=== PATIENT | male | born 1960 | race Caucasian/White ===

== ENCOUNTER 2021-04-27 11:03 | Outpatient (CLI) | payer OTHER, SELFPAY ==
[2021-04-27 11:24] LABS: Basophils Percent Auto 0.6 % (0.2-1.2); Eosinophils Percent Auto 0.6 % (0-4.4); Hematocrit 48.9 % (42.0-52.0); Hemoglobin 16.6 g/dL (14.0-18.0); Immature Granulocyte Absolute 0.01 K/mm3 (0.00-0.031); Immature Granulocyte Percent A 0.2 % (0-0.5); Lymphocytes Absolute Auto 1.85 K/mm3 (0.9-3.2); Lymphocytes Percent Auto 39.1 % (18.3-44.2); Mean Corpuscular HGB Conc 33.9 g/dl (32-36); Mean Corpuscular Hemoglobin 35.9 pg (26-34); Mean Corpuscular Volume 105.8 fl (80-100); Mean Platelet Volume 9.9 fl (7.4-10.4); Monocytes Absolute Auto 0.7 K/mm3 (0.1-0.6); Monocytes Percent Auto 14.4 % (2.6-8.5); Neutrophils Absolute Auto 2.1 K/mm3 (1.3-6.7); Neutrophils Percent Auto 45.1 % (45.5-73.1); Platelet Count Result 105 k/mm3 (150-375); Red Blood Count 4.62 M/mm3 (4.6-6.20); Red Cell Distribution Width 12.6 % (11.5-14.5); White Blood Count 4.7 K/mm3 (4.5-10.0)
[2021-04-27 16:02] LABS: Iron 218 ug/dL (49-181)
[2021-04-27 16:03] LABS: Alanine Aminotransferase 123 U/L (4-50); Albumin Level 4.7 g/dL (3.5-5.1); Alkaline Phosphatase 111 U/L (38-126); Anion Gap 10 mmol/L (8-16); Aspartate Amino Transferase 96 U/L (17-59); Bilirubin,Total 1.1 mg/dL (0.2-1.3); Blood Urea Nitrogen 14 mg/dL (9-20); Calcium 9.6 mg/dL (8.4-10.2); Carbon Dioxide 24 mmol/L (22-30); Chloride 106 mmol/L (98-107); Estimated Glomerular Filt Rate > 60; Glucose 121 mg/dL (65-110); Potassium 4.2 mmol/L (3.4-5.0); Sodium 140 mmol/L (137-145)
[2021-04-27 16:12] LABS: Percent Iron Saturation 64 % (20-50)
[2021-04-27 17:09] LABS: Folic Acid 8.6 ng/mL (2.76->20); Vitamin B12 > 1000.0 pg/mL (239-931)
== END 2021-04-27 11:04 | disposition home or self-care (01) ==
LOC: ANHLAB 11:06
PROVIDERS: PCP Family Medicine; Visit Provider Internal Medicine Hematology & Oncology
DX: D75.89 Other specified diseases of blood and blood-forming organs (principal)
CPT/HCPCS: 36415; 80053; 82607; 82728; 82746; 83540; 83550; 85025

== ENCOUNTER 2021-05-03 07:53 | Outpatient (CLI) | payer OTHER, SELFPAY ==
--- NOTE | ~2021-05-03 | US_ITS ---
EXAMINATION: US abdomen complete EXAM DATE: 05/03/2021 09:10 INDICATION: Other secondary thrombocytopenia. TECHNIQUE: Multiple grayscale and Doppler images of the complete abdomen were obtained (by a technolo gist who performed the scan) and subsequently reviewed. There is no prior study for comparison. FINDINGS: The abdominal aorta is normal in caliber. Visualized portion IVC is patent. Pancreas poorly visua lized from overlying bowel gas. The liver has normal echogenicity and contour. There are no focal liver lesions identified. There is no evidence of intrahepatic biliary duct dilation. Portal venous flow was seen in the hepatopedal , normal direction and has normal Doppler waveform. Common bile duct measures 4 mm, which is normal. The gallbladder wall is normal in thickness, with ex pected amount of distention. No sonographic evidence of pericholecystic fluid. There is no cholelit hiases. Technologist performing exam reports patient did not demonstrate sonographic Narvaez's sign. Please note that this sign is less reliable in patients who have received pain medication. Right kidney: There is normal contour and echogenicity. It measures 11.1 x 5.4 x 6.6 centimeters. There are no focal renal lesions identified. There is no hydronephrosis. Left kidney: There is normal contour and echogenicity. It measures 12.3 x 6.4 x 5.4 centimeters. T here are no focal renal lesions identified. There is no hydronephrosis. The spleen measures 10.5 by 4.0 x 5.4 centimeters and is morphologically normal. IMPRESSION: 1. Unremarkable complete abdominal ultrasound exam. 2. Normal spleen size. Reviewed, dictated and finalized at location A. HING PRESSER
== END 2021-05-03 07:54 | disposition home or self-care (01) ==
PROVIDERS: PCP Family Medicine; Visit Provider Internal Medicine Hematology & Oncology
DX: D69.59 Other secondary thrombocytopenia (principal)
CPT/HCPCS: 76700

== ENCOUNTER 2022-05-10 11:03 | Emergency (ER) | payer OTHER, SELFPAY ==
--- NOTE | ~2022-05-10 | US_ITS ---
Limited Abdominal Sonogram: Real-time sonographic imaging of the right upper quadrant was performed. Clinical History: Cholecystitis Findings: The liver appears normal with no evidence of mass lesion or bile duct dilatation. Main por joe vein demonstrates normal direction of flow. The gallbladder is well distended, and contains proba ble minimal gallbladder sludge. Probable mild gallbladder wall thickening up to 5 mm. The common bile duct measures 4 mm. The pancreas and aorta and IVC are obscured by bowel gas shadowing. Impression: Probable minimal gallbladder wall thickening and minimal sludge, but negative sonographic Narvaez's si gn. Findings are somewhat equivocal. If acute cholecystitis is of clinical concern, then HIDA scan sh ould be strongly considered to further evaluate for cystic duct patency. Reviewed, dictated and finalized at location . TENANCE AND UTILITIES SUPERVISOR Impression: Probable minimal gallbladder wall thickening and minimal sludge, but negative s onographic Narvaez's sign. Findings are somewhat equivocal. If acute cholecystit is is of clinical concern, then HIDA scan should be strongly considered to furt her evaluate for cystic duct patency.
--- NOTE | ~2022-05-10 | CT_ITS ---
CT Abdomen and Pelvis with contrast. History: Abdominal pain. Spiral CT of the abdomen and pelvis was performed after the administration of intravenous contrast. 1 00 cc of Omnipaque 350 was administered intravenously without complication. Dose reduction technique was used on this scan by utilizing automated exposure control and iterative reconstruction technique. The dose-length product (DLP) was 595.37 mGy-cm. COMPARISON: 05/24/2011 Findings: Scans through the lung bases demonstrate mild atelectatic change. There is probable mild infiltration of pericholecystic fat with mild distention of the gallbladder. T here is minimal heterogeneity of hepatic parenchyma with relative mild decreased density overall. The spleen, pancreas, adrenals and kidneys are within normal limits. No evidence of aortic aneurysm. N o lymphadenopathy is seen. There is no evidence of bowel obstruction. There is no evidence to suggest acute appendicitis or dive rticulitis. Images through the pelvis were performed. Urinary bladder unremarkable. Prostate gland and seminal ve sicles are unremarkable. No ascites is seen. Chronic bilateral L5 pars interarticularis defects are p resent. Impression: Findings suggestive of acute cholecystitis. Consider ultrasound and/or HIDA scan for further evaluati on as indicated. Mild heterogeneity and decreased density of the liver, most likely representing hepatic steatosis. Chronic bilateral L5 pars interarticularis defects. Reviewed, dictated and finalized at location M. EL DEDENTING MACHINE OPERATOR Impression: Findings suggestive of acute cholecystitis. Consider ultrasound and/or HIDA sca n for further evaluation as indicated. Mild heterogeneity and decreased density of the liver, most likely representing hepatic steatosis. Chronic bilateral L5 pars interarticularis defects.
[2022-05-10 11:14] VITALS: BP 172/99; PULSE 87; RESP 16; TEMP 37.2; O2SAT 99
[2022-05-10 11:21] VITALS: BP 184/89; PULSE 78; RESP 18; O2SAT 100
--- NOTE | 2022-05-10 11:37 | ED.ABDPAIN ---
HPI - Abdominal Pain General Chief Complaint: Abdominal Pain Stated Complaint: Sent from urgent care Time Seen by Provider: 05/10/22 11:24 History of Present Illness HPI narrative: 62-year-old male here for evaluation of diffuse abdominal pain and constipation for the past 2 days. Patient states that his last solid bowel movement was 3 days ago, since then he has been passing liquid stool and passing gas. States that his pain is all over , worse in the upper abdomen. Attempted Dulcolax without relief. Last p.o. intake was a grilled cheese about 24 hours ago, has had little appetite since then. No nausea, vomiting, fevers, chills, blood in his stool. He has had no abdominal surgeries and has no malignancy history. Related Data Allergies Allergy/AdvReac Type Severity Reaction Status Date / Time Penicillins Allergy Unknown Unknown Verified 05/10/22 12:22 Review of Systems Review of Systems: Gen.: Denies fevers or chills Eyes: Denies eye pain or visual change ENT: Denies congestion Respiratory: Denies shortness of breath or cough CV: Denies chest pain or palpitations GI: Reports abdominal pain and constipation : denies burning, urgency, frequency or hematuria Musculoskeletal: Denies back pain or muscle pain Neuro: Denies numbness, tingling, weakness or focal weakness Skin: Denies rash Except as documented, all other systems reviewed and negative [facility] Past Medical History Medical History BMI 25.0-25.9,adult Family History Family History Father Hypertension Mother Hypertension Sibling Hypertension Grandparent Family history of coronary artery disease Social History Social History Smoking status: Never smoker Alcohol intake: current Substance use: never Substance use type: does not use Living arrangements: with family Occupation/Education: retired Gender identity (if verbalized by the patient): Male Sexual Orientation (if Verbalized by the Patient): Straight or Heterosexual Spiritual care concerns: No Agree to blood products: Yes Exam Narrative: APPEARANCE: Well appearing, no pain in distress, well-nourished. Head: Normocephalic and atraumatic. EYES: PERRLA/EOMI, conjunctivae clear NOSE: No nasal drainage EARS: External ear normal in appearance THROAT: Oropharynx is clear. Mucous membranes are moist. NECK: Supple. No adenopathy, no masses. RESPIRATORY: Airway patent, respirations nonlabored. Clear to auscultation bilaterally, no rales, rhonchi, wheezing. CARDIOVASCULAR: Regular rate and rhythm without murmurs, rubs, or gallops. ABDOMINAL: Abdomen is firm and distended, tender to palpation in the epigastric region. No rebound tenderness or guarding. Normoactive bowel sounds. MUSCULOSKELETAL: Extremities are warm and well-perfused. Moves all extremities well. No edema. NEURO: Normal speech. No focal neurologic deficits. SKIN: Skin is warm and dry. No rashes. PSYCHIATRIC: Normal affect/mood. Course Vital Signs Vital signs: Vital Signs Temperature 98.9 F 05/10/22 11:14 Pulse Rate 87 05/10/22 11:14 Respiratory Rate 16 05/10/22 11:14 Blood Pressure 172/99 H 05/10/22 11:14 Pulse Oximetry 99 05/10/22 11:14 Oxygen Delivery Room Air 05/10/22 11:14 Temperature 98.9 F 05/10/22 11:14 Pulse Rate 78 05/10/22 11:21 Respiratory Rate 18 05/10/22 11:21 Blood Pressure 184/89 H 05/10/22 11:21 Pulse Oximetry 100 05/10/22 11:21 Oxygen Delivery Room Air 05/10/22 11:14 MDM - Abdominal Pain MDM Narrative Medical decision making narrative: 62-year-old male here for evaluation of upper abdominal pain and constipation over the past several days. Patient has elevated blood pressure 172/99, remainder vital signs are normal. He is tender to palpation in the epigastric region, his abdo
[2022-05-10 11:46] LABS: Basophils Percent Auto 0.2 % (0.2-1.2); Hematocrit 46.4 % (42.0-52.0); Hemoglobin 16.5 g/dL (14.0-18.0); Immature Granulocyte Percent A 0.6 % (0-0.5); Lymphocytes Absolute Auto 1.73 K/mm3 (0.9-3.2); Mean Corpuscular HGB Conc 35.6 g/dl (32-36); Mean Corpuscular Hemoglobin 35.3 pg (26-34); Mean Corpuscular Volume 99.1 fl (80-100); Mean Platelet Volume 9.6 fl (7.4-10.4); Monocytes Absolute Auto 2.3 K/mm3 (0.1-0.6); Monocytes Percent Auto 13.2 % (2.6-8.5); Neutrophils Absolute Auto 13.1 K/mm3 (1.3-6.7); Platelet Count Result 119 k/mm3 (150-375); Red Blood Count 4.68 M/mm3 (4.6-6.20); Red Cell Distribution Width 13.5 % (11.5-14.5); White Blood Count 17.3 K/mm3 (4.5-10.0)
[2022-05-10 11:47] LABS: Appearance Urine Clear (Clear); Bilirubin Urine Negative (Negative); Blood Urine Trace-intact (Negative); Color Urine Yellow (Yellow); Glucose Urine UA Negative (Negative); Ketones Urine 1+ mg/dL (Negative); Leukocyte Esterase Ur Negative LEU/UL (Negative); Nitrate Urine Negative (Negative); Protein Urine 2+ mg/dL (Negative); Specific Grav Ur 1.015 (1.001-1.035); Urobilinogen Urine 0.2 mg/dL (<2.0)
[2022-05-10 11:54] LABS: Alanine Aminotransferase 58 U/L (6-50); Albumin Level 4.7 g/dL (3.5-5.1); Alkaline Phosphatase 94 U/L (38-126); Anion Gap 6 mmol/L (8-16); Aspartate Amino Transferase 44 U/L (17-59); Bilirubin,Total 2.8 mg/dL (0.2-1.3); Blood Urea Nitrogen 9 mg/dL (9-20); Calcium 9.2 mg/dL (8.4-10.2); Carbon Dioxide 27 mmol/L (22-30); Chloride 97 mmol/L (98-107); Estimated CRCL calculation 81 ml/min; Estimated Glomerular Filt Rate > 60; Glucose 148 mg/dL (65-110); Lipase 37 U/L (23-300); Mucus Urine Rare /lpf; Potassium 4.5 mmol/L (3.4-5.0); RBC Urine 0-2 /hpf (0-2); Sodium 130 mmol/L (137-145); WBC Urine 0-3 /hpf
[2022-05-10 11:58] LABS: Add Urine Microscopic? YES
[2022-05-10 12:17] LABS: Magnesium 1.8 mg/dL (1.6-2.3)
[2022-05-10] MEDS: SODIUM CHLORIDE 0.9% IV 1,000 ML 999 ML IV CONT (12:18)
[2022-05-10] MEDS: ONDANSETRON INJ 4 MG/2 ML VIAL IV PUSH (12:20)
[2022-05-10] MEDS: MORPHINE SULFATE (*CRX) 4 MG/ML INJ IV PUSH (13:12)
== END 2022-05-10 14:00 | disposition home or self-care (01) ==
PROVIDERS: Emergency Provider Physician Assistant; PCP Family Medicine
DX: K81.0 Acute cholecystitis (principal)
CPT/HCPCS: 36415; 74177; 76705; 80053; 81001; 83605; 83690; 83735; 85025; 96361; 96374; 96375; 99284; J2270; J2405; J7030; Q9967

== ENCOUNTER 2022-05-15 10:40 | Inpatient (IN) | payer OTHER, SELFPAY ==
--- NOTE | ~2022-05-15 | CT_ITS ---
EXAMINATION: CT abdomen pelvis w con DATE: 05/15/2022 11:25 INDICATION: Acute cholecystitis. TECHNIQUE: Computed tomography (CT) of the abdomen and pelvis was performed with 100 mL Omnipaque 350 intravenous contrast. Automated exposure control and iterative reconstruction technique were employe d. The dose-length product was 479.03 mGy-cm. COMPARISON: CT abdomen and pelvis 05/10/2022, ultrasound 05/10/2022 FINDINGS: The visualized portions of the lung bases demonstrate mild atelectasis. No pleural effusion . The heart size is normal. There are coronary artery calcifications. No pericardial effusion. There is a small sliding hiatal hernia. There is a 6 mm cyst in the liver. The gallbladder is distended wit h wall thickening and surrounding fat stranding. The spleen, pancreas, adrenal glands, and right kidn ey are normal. There is a 3 mm cyst in left kidney. There are no dilated loops of bowel. The appendix is normal. There are no pathologically enlarged lymph nodes. There is no free intraperitoneal fluid. There are chronic bilateral L5 pars defects. There is moderate thoracic and lumbar spondylosis. IMPRESSION: 1. Acute cholecystitis. Reviewed, dictated and finalized at location A. TICS ENGINEER IMPRESSION: 1. Acute cholecystitis.
--- NOTE | 2022-05-15 11:04 | ADMGEN ---
This patient, Alf Alston, was admitted to 3 [facility] Surg Room 320-01. Patient/family oriented to hospital policies and general routines including ID bracelet, bed and alarms, visiting hours, pain management, procedures, bathroom and other care routines, personal items, smoking policy, room service/diet, and visiting hours. Information on how to activate the Rapid Response Team has been discussed. Patient/Family are encouraged to report perceived risks to care and to ask questions if they do not understand what they are told or what they should do.
--- NOTE | 2022-05-15 11:17 | PM.IMHP ---
H&P: HPI History of Present Illness Date/Time: 05/15/22 11:17 Chief Complaint: Acute cholecystitis Narrative: This is a 62-year-old man with a history of hypertension and hyperlipidemia, who is being directly admitted from our office today for acute cholecystitis. He was recently in [facility] ED on 05/10/2022 with a 2-day history of severe epigastric and RUQ abdominal pain, back pain, and bloating.? CT scan performed was suggestive of acute cholecystitis.?Ultrasound showed probable minimal gallbladder wall thickening and minimal sludge, but negative sonographic Narvaez's sign. Labs showed WBC to be 17.3, total bili was 2.8, and ALT was 58.?He was discharged with a course of Jacob 5/325mg po Q 8 hours and Miralax, and instructed to follow-up in our office for outpatient evaluation.? No antibiotics were given.?He was then seen by Dr. Nunez this morning in the office. He has continued to have persistent RUQ abdominal pain since discharge, for a total of 6 days. His pain is aggravated by deep breathing. He has taken Miralax and has been having small, watery stools but without improvement in his pain. No nausea, vomiting, or fevers. Denies dark-colored urine, munir-colored stools, or scleral icterus. No previous abdominal surgeries. Review of Systems Review of Systems: All systems reviewed & are unremarkable except as noted in HPI and below PMFSH Past Medical History Medical History Benign hypertension Hyperlipidemia Surgical History Surgical History History of knee surgery History of rotator cuff surgery Family History Family History Father Hypertension Cancer Mother Hypertension Sibling Hypertension Grandparent Family history of coronary artery disease Social History Social History Smoking packs per day: 0.5 Smoking cigarettes per day: 10.0 Years smoked: 15 Smoking pack-years: 7.50 Smoking status: Former smoker Tobacco type: cigarettes Second hand tobacco smoke exposure: Yes Smoking end date: 04/21/94 Alcohol intake: current Drinks per week: 8 Substance use: never Substance use type: does not use Lack of Transportation: No Lack of Food: Never True Current Housing: I Have Housing Concerned About Future Housing: No Difficulty Paying Gas/Electric Bills: No Difficulty Paying for Meds: No Currently Unemployed: No Education: Don't Know Difficulty w/ Childcare or Family Care: No Living arrangements: with family Occupation/Education: retired Additional occupation/education comments: [employer] Gender identity (if verbalized by the patient): Male Sexual Orientation (if Verbalized by the Patient): Straight or Heterosexual Spiritual care concerns: No Agree to blood products: Yes Meds Home Medications and Allergies Home Medications Medication Instructions Recorded Confirmed Type omeprazole 20 mg capsule,delayed 20 mg PO DAILY #90 caps 06/28/21 05/15/22 Rx release ezetimibe 10 mg tablet (Zetia) 10 mg PO DAILY #90 tabs 10/22/21 05/15/22 Rx lisinopril 40 mg tablet 40 mg PO DAILY #90 tabs 01/24/22 05/15/22 Rx hydrocodone 5 mg-acetaminophen 325 1 tablet PO Q6H PRN pain #20 tabs 05/14/22 05/15/22 Rx mg tablet ketoconazole 2 % shampoo 1 applic topical 2XW PRN itching 05/15/22 05/15/22 History Allergies Allergy/AdvReac Type Severity Reaction Status Date / Time Penicillins Allergy Unknown Unknown Verified 05/15/22 09:51 Exam Const: General: comfortable, no acute distress and awake Nutritional Appearance: average body habitus Orientation/consciousness: patient oriented x3 HENMT: Head: normocephalic and atraumatic Ears: hearing grossly normal bilaterally Mouth: Yes moist mucous membranes Eyes: General: appearanc
[2022-05-15 11:18] VITALS: BMI 26.3
[2022-05-15 11:31] LABS: Basophils Absolute Auto 0.1 K/mm3 (0.0-0.1); Basophils Percent Auto 0.7 % (0.2-1.2); Eosinophils Percent Auto 0.2 % (0-4.4); Hematocrit 41.2 % (42.0-52.0); Immature Granulocyte Absolute 0.04 K/mm3 (0.00-0.031); Immature Granulocyte Percent A 0.5 % (0-0.5); Lymphocytes Absolute Auto 1.36 K/mm3 (0.9-3.2); Lymphocytes Percent Auto 16.8 % (18.3-44.2); Mean Corpuscular Hemoglobin 34.5 pg (26-34); Mean Corpuscular Volume 101.5 fl (80-100); Monocytes Absolute Auto 0.8 K/mm3 (0.1-0.6); Monocytes Percent Auto 9.8 % (2.6-8.5); Neutrophils Absolute Auto 5.8 K/mm3 (1.3-6.7); Platelet Count Result 125 k/mm3 (150-375); Red Blood Count 4.06 M/mm3 (4.6-6.20); Red Cell Distribution Width 13.4 % (11.5-14.5); White Blood Count 8.1 K/mm3 (4.5-10.0)
[2022-05-15 11:34] LABS: INR 1.2; Prothrombin Time 14.8 Seconds (11.1-14.7)
[2022-05-15 11:45] LABS: Alanine Aminotransferase 111 U/L (6-50); Albumin Level 4.1 g/dL (3.5-5.1); Alkaline Phosphatase 215 U/L (38-126); Anion Gap 12 mmol/L (8-16); Aspartate Amino Transferase 137 U/L (17-59); Bilirubin,Total 1.9 mg/dL (0.2-1.3); Blood Urea Nitrogen 48 mg/dL (9-20); Calcium 8.7 mg/dL (8.4-10.2); Carbon Dioxide 22 mmol/L (22-30); Chloride 95 mmol/L (98-107); Estimated CRCL calculation 32 ml/min; Estimated Glomerular Filt Rate 32; Glucose 127 mg/dL (65-110); Potassium 3.4 mmol/L (3.4-5.0); Sodium 129 mmol/L (137-145)
[2022-05-15 11:46] LABS: Lipase 3472 U/L (23-300)
[2022-05-15] MEDS: SODIUM CHLORIDE 0.9% IV 1,000 ML 100 ML IV CONT (12:00)
[2022-05-15] MEDS: LACTATED RINGERS 1,000 ML 245 ML IV CONT (12:48)
[2022-05-15] MEDS: PANTOPRAZOLE SODIUM IV 40 MG VIAL IV PUSH (12:50)
[2022-05-15 14:00] VITALS: BP 113/68; PULSE 71; RESP 16; TEMP 36.4; O2SAT 96
[2022-05-15] MEDS: DEXTROSE 5%/0.9% SOD CHL 1,000 ML 130 ML IV CONT (17:42)
[2022-05-15] MEDS: MORPHINE SULFATE (*CRX) 2 MG/ML INJ IV PUSH (18:19)
[2022-05-15] MEDS: EZETIMIBE 10 MG TABLET PO (20:31)
[2022-05-15 22:07] VITALS: BP 117/74; PULSE 71; RESP 18; TEMP 36.9; O2SAT 100
[2022-05-16] MEDS: SODIUM CHLORIDE 0.9% IV 1,000 ML 100 ML IV CONT ×3 (03:27→20:49)
[2022-05-16 06:00] VITALS: BP 129/84; PULSE 60; RESP 16; TEMP 36.6; O2SAT 97
[2022-05-16 06:45] LABS: Basophils Percent Auto 0.3 % (0.2-1.2); Eosinophils Percent Auto 0.2 % (0-4.4); Hematocrit 35.2 % (42.0-52.0); Hemoglobin 12.3 g/dL (14.0-18.0); Immature Granulocyte Absolute 0.03 K/mm3 (0.00-0.031); Immature Granulocyte Percent A 0.5 % (0-0.5); Lymphocytes Absolute Auto 1.17 K/mm3 (0.9-3.2); Lymphocytes Percent Auto 17.9 % (18.3-44.2); Mean Corpuscular HGB Conc 34.9 g/dl (32-36); Mean Corpuscular Hemoglobin 34.2 pg (26-34); Mean Corpuscular Volume 97.8 fl (80-100); Monocytes Absolute Auto 0.6 K/mm3 (0.1-0.6); Monocytes Percent Auto 9.2 % (2.6-8.5); Neutrophils Absolute Auto 4.7 K/mm3 (1.3-6.7); Neutrophils Percent Auto 71.9 % (45.5-73.1); Platelet Count Result 119 k/mm3 (150-375); Red Cell Distribution Width 13.2 % (11.5-14.5); White Blood Count 6.6 K/mm3 (4.5-10.0)
[2022-05-16 06:48] LABS: Alanine Aminotransferase 82 U/L (6-50); Albumin Level 3.2 g/dL (3.5-5.1); Alkaline Phosphatase 158 U/L (38-126); Anion Gap 5 mmol/L (8-16); Aspartate Amino Transferase 88 U/L (17-59); Bilirubin,Total 1.3 mg/dL (0.2-1.3); Blood Urea Nitrogen 23 mg/dL (9-20); Carbon Dioxide 23 mmol/L (22-30); Chloride 101 mmol/L (98-107); Estimated CRCL calculation 66 ml/min; Estimated Glomerular Filt Rate > 60; Glucose 109 mg/dL (65-110); Lipase 1990 U/L (23-300); Potassium 3.4 mmol/L (3.4-5.0); Sodium 129 mmol/L (137-145)
[2022-05-16 07:40] LABS: Atypical Lymphocytes Present; Platelet Estimate Decreased (Adequate); Schistocytes None Seen (NORMAL)
[2022-05-16 07:56] VITALS: BP 144/81; PULSE 63; RESP 16; TEMP 36.6; O2SAT 99
--- NOTE | 2022-05-16 09:34 | PM.PNGS ---
Progress Note: A&P Assessment and Plan (1) Gallstone pancreatitis: Code(s): K85.10 - Biliary acute pancreatitis without necrosis or infection Status: Acute Assessment and Plan: Presented with gallstone pancreatitis. Lipase down to 1990 today. Abdominal pain is improving, which is likely related to the gallstone pancreatitis more than the cholecystitis. Will start a clear liquid diet. Continue IV fluids and analgesics as needed. Repeat labs tomorrow. (2) Acute cholecystitis: Code(s): K81.0 - Acute cholecystitis Status: Acute Assessment and Plan: Clinically improving with treatment of the pancreatitis. CT abd/pelvis yesterday suggested acute cholecystitis. WBC still normal and LFTs trending down. Continue IV antibiotics. Since he is improving, we will hold off on percutaneous cholecystostomy tube at this time. (3) RICHA (acute kidney injury): Code(s): N17.9 - Acute kidney failure, unspecified Status: Acute Assessment and Plan: Creatinine 2.1 yesterday and has improved with IV fluids, down to 1.0. continue to monitor. IV Zosyn was at the renal dose, will switch back to 3.375 gm dosing. (4) Transaminitis: Code(s): R74.01 - Elevation of levels of liver transaminase levels Status: Acute Assessment and Plan: Elevated LFTs with total bilirubin at 1.9 yesterday when admitted. LFTs trending down today with total bili down to 1.3. He likely passed a stone, but will continue to monitor trend. May need an MRCP if trending up. (5) Benign hypertension: Code(s): I10 - Essential (primary) hypertension Status: Chronic Assessment and Plan: BP stable this morning. IV metoprolol ordered as needed. (6) Hyperlipidemia: Qualifiers: Hyperlipidemia type: unspecified Qualified Code(s): E78.5 - Hyperlipidemia, unspecified Code(s): E78.5 - Hyperlipidemia, unspecified Status: Chronic Assessment and Plan: Home meds restarted Plan I have discussed the patient's case and plan of care with Dr. Nunez. Subjective Subjective Date/Time Seen: 05/16/22 09:34 Patient reports: feels better, pain is less, flatus, bowel movement (large BM) and afebrile Interval history: Patient feeling better this morning .He only received one dose of IV Morphine for pain around 6pm last night. No nausea and he feels his bloating has improved some. No acute issues overnight or other complaints at this time. Review of Systems Review of Systems: All systems reviewed & are unremarkable except as noted in HPI and below Exam Const: General: comfortable, no acute distress and awake Orientation/consciousness: patient oriented x3 GI: Inspection: other (mildly distended) GI Palp: Yes Soft to palpation, Yes Tenderness to palpation present (GI) (RUQ, epigastric), No Guarding due to palpation present (GI) and No Rebound tenderness present Auscultation: normal bowel sounds Neuro: General: moves all extremities Extrem: General: no edema Psych: Mental Status: mental status grossly normal Objective Data Vital Signs Vital Signs: Vital Signs - 24 hr 05/15/22 11:38 05/15/22 14:00 05/15/22 22:07 Temperature 97.6 F 98.4 F Pulse Rate 71 71 Respiratory Rate 16 18 Blood Pressure 113/68 117/74 Pulse Oximetry 96 100 Oxygen Delivery Room Air 05/15/22 20:31 05/16/22 06:00 05/16/22 07:56 Temperature 97.9 F 98 F Pulse Rate 60 63 Respiratory Rate 16 16 Blood Pressure 129/84 144/81 H Pulse Oximetry 97 99 Oxygen Delivery Room Air Intake/Output Intake/Output: Intake & Output 05/13/22 05/14/22 05/15/22 05/16/22 23:59 23:59 23:59 23:59 Intake Total 1100 120 Balance 1100 120 Meds/Results Medications: Active Medications Generic Name Dose Route Start Last Admin Trade Name Ashley PRN Reason Stop Dose Admin Ezetimibe 10 mg 05/15/22 21:00 05/15/22 20:31 Ezetimibe 10 Mg Tablet PO 10 mg HS SAÚL Administration S
[2022-05-16] MEDS: MORPHINE SULFATE (*CRX) 2 MG/ML INJ IV PUSH (09:37)
[2022-05-16] MEDS: PANTOPRAZOLE SODIUM IV 40 MG VIAL IV PUSH (09:53)
[2022-05-16] MEDS: POTASSIUM CHLORIDE INJ 40 MEQ in SODIUM CHLORIDE 0.9% IV 500 ML 130 MEQ IVPB (10:48)
[2022-05-16 16:00] VITALS: BP 161/82; PULSE 66; RESP 16; TEMP 37.3; O2SAT 100
[2022-05-16] MEDS: ACETAMINOPHEN 325 MG TABLET 650 MG PO (16:39)
[2022-05-16 19:00] VITALS: TEMP 36.3
[2022-05-16] MEDS: EZETIMIBE 10 MG TABLET PO (20:41)
[2022-05-16 22:00] VITALS: BP 158/78; PULSE 61; RESP 18; TEMP 35.9; O2SAT 97
[2022-05-17] MEDS: SODIUM CHLORIDE 0.9% IV 1,000 ML 100 ML IV CONT (05:12)
[2022-05-17 06:00] VITALS: BP 158/88; PULSE 75; RESP 16; TEMP 36.3; O2SAT 100
[2022-05-17 06:36] LABS: Hematocrit 37.8 % (42.0-52.0); Mean Corpuscular HGB Conc 34.4 g/dl (32-36); Mean Corpuscular Hemoglobin 34.9 pg (26-34); Mean Corpuscular Volume 101.6 fl (80-100); Mean Platelet Volume 9.6 fl (7.4-10.4); Platelet Count Result 132 k/mm3 (150-375); Red Blood Count 3.72 M/mm3 (4.6-6.20); Red Cell Distribution Width 13.4 % (11.5-14.5); White Blood Count 6.7 K/mm3 (4.5-10.0)
[2022-05-17 06:50] LABS: Alanine Aminotransferase 78 U/L (6-50); Albumin Level 3.1 g/dL (3.5-5.1); Alkaline Phosphatase 158 U/L (38-126); Anion Gap 6 mmol/L (8-16); Aspartate Amino Transferase 74 U/L (17-59); Bilirubin,Total 1.2 mg/dL (0.2-1.3); Blood Urea Nitrogen 12 mg/dL (9-20); Calcium 8.1 mg/dL (8.4-10.2); Carbon Dioxide 22 mmol/L (22-30); Chloride 106 mmol/L (98-107); Estimated CRCL calculation 73 ml/min; Estimated Glomerular Filt Rate > 60; Glucose 109 mg/dL (65-110); Lipase 981 U/L (23-300); Potassium 3.6 mmol/L (3.4-5.0); Sodium 134 mmol/L (137-145)
--- NOTE | 2022-05-17 08:27 | PM.PNGS ---
Progress Note: A&P Assessment and Plan (1) Acute cholecystitis: Code(s): K81.0 - Acute cholecystitis Status: Acute Assessment and Plan: Patient's right lower quadrant bowel pain is improving. White blood cell count is now normal. Liver enzymes are almost normalized. Total bilirubin is down to 1.2. He may have passed a gallstone or his acute pancreatitis may be due to biliary sludge. Has tolerated clear liquids and so will go ahead and advance him to a low-fat bland diet. Continue his IV antibiotics for now. Go ahead and restart all his home antihypertensive medications by mouth. Transitional using oral pain medications as needed. Hopefully home in the next 1 to 2 days. Would plan on interval laparoscopic cholecystectomy when the inflammation has subsided in 3 to 4 weeks. (2) Gallstone pancreatitis: Code(s): K85.10 - Biliary acute pancreatitis without necrosis or infection Status: Acute Assessment and Plan: Lipase is now down to 900. Clinically the epigastric pain and pancreatitis is improving. Continue supportive management. Subjective Subjective Date/Time Seen: 05/17/22 08:27 Patient reports: no new complaints, feels better, pain is less and tolerating liquids well Interval history: Patient feels better today. He has less abdominal pain and is not taking pain medicines overnight. he has been having bowel movements. He tolerated clear liquids yesterday. Review of Systems Review of Systems: The remainder of the review of systems to include constitutional, HEENT, cardiovascular, respiratory, GI, , integumentary, musculoskeletal, endocrine, immunologic, hematologic, psychiatric, and neurologic are all negative except for which is mentioned above in the HPI. Exam Const: General: comfortable and no acute distress Resp: Effort & Inspection: normal respiratory effort Cardio: Rate: regular rate Rhythm: regular rhythm GI: Other: Abdomen is soft with decreased abdominal distention. He still has some mild tenderness to deep palpation in the epigastric and right upper quadrant regions of the abdomen. No guarding or peritoneal signs are noted. Tenderness is definitely better. Psych: Mental Status: mental status grossly normal Affect: normal affect Objective Data Vital Signs Vital Signs: Vital Signs - 24 hr 05/16/22 16:00 05/16/22 19:00 05/16/22 22:00 Temperature 37.3 C 36.3 C L 35.9 C L Pulse Rate 66 61 Respiratory Rate 16 18 Blood Pressure 161/82 H 158/78 H Pulse Oximetry 100 97 Oxygen Delivery 05/16/22 20:49 05/17/22 06:00 Temperature 36.3 C L Pulse Rate 75 Respiratory Rate 16 Blood Pressure 158/88 H Pulse Oximetry 100 Oxygen Delivery Room Air Intake/Output Intake/Output: Intake & Output 05/14/22 05/15/22 05/16/22 05/17/22 23:59 23:59 23:59 23:59 Intake Total 1100 4510 1100 Output Total 900 Balance 1100 3610 1100 Meds/Results Medications: Active Medications Generic Name Dose Route Start Last Admin Trade Name Freq PRN Reason Stop Dose Admin Acetaminophen 650 mg 05/16/22 09:53 05/16/22 16:39 Acetaminophen 325 Mg Tablet PO 650 mg Q4H PRN Administration Headache Ezetimibe 10 mg 05/15/22 21:00 05/16/22 20:41 Ezetimibe 10 Mg Tablet PO 10 mg HS SAÚL Administration Piperacillin/Tazobactam/Dextrose 3.375 gm in 50 mls @ 100 mls/hr 05/16/22 12:00 05/17/22 05:12 Zosyn 3.375 Gm/D5w 50ml Pm IVPB 125 mls/hr Q6H SAÚL Administration Lisinopril 40 mg 05/17/22 09:00 Lisinopril 20 Mg Tablet PO QAM SAÚL Metoprolol Tartrate 5 mg 05/15/22 12:10 Metoprolol Tartrate Inj 5 Mg/5 Ml Vial IV PUSH Q4H PRN SBP > 170. Morphine Sulfate 2 mg 05/15/22 10:55 05/16/22 09:37 Morphine Sulfate (*Crx) 2 Mg/Ml Inj IV PUSH 2 mg Q2H PRN Administration Pain Rated 7-10 Ondansetron HCl 4 mg 05/15/22 10:55 Ondansetron Inj 4 Mg/2 Ml Vial IV PUSH Q6H PRN Naus
[2022-05-17] MEDS: oxyCODONE HCL (*CRX) 5 MG TAB IR PO ×3 (08:49→18:46)
[2022-05-17] MEDS: PANTOPRAZOLE 40 MG TABLET PO (09:47)
[2022-05-17] MEDS: lisinopriL 20 MG TABLET 40 MG PO (09:47)
[2022-05-17 16:00] VITALS: BP 161/89; PULSE 75; RESP 20; TEMP 36.3; O2SAT 100
[2022-05-17] MEDS: EZETIMIBE 10 MG TABLET PO (20:41)
[2022-05-17 22:00] VITALS: BP 168/78; PULSE 61; RESP 18; TEMP 36.6; O2SAT 100
[2022-05-17] MEDS: ACETAMINOPHEN 325 MG TABLET 650 MG PO (23:10)
[2022-05-18 06:00] VITALS: BP 164/80; PULSE 54; RESP 18; TEMP 36.4; O2SAT 100
[2022-05-18 07:50] LABS: Basophils Percent Auto 0.3 % (0.2-1.2); Eosinophils Percent Auto 0.4 % (0-4.4); Hematocrit 36.7 % (42.0-52.0); Hemoglobin 12.7 g/dL (14.0-18.0); Immature Granulocyte Absolute 0.04 K/mm3 (0.00-0.031); Immature Granulocyte Percent A 0.6 % (0-0.5); Lymphocytes Absolute Auto 1.44 K/mm3 (0.9-3.2); Lymphocytes Percent Auto 20.3 % (18.3-44.2); Mean Corpuscular HGB Conc 34.6 g/dl (32-36); Mean Corpuscular Hemoglobin 34.5 pg (26-34); Mean Corpuscular Volume 99.7 fl (80-100); Mean Platelet Volume 9.8 fl (7.4-10.4); Monocytes Absolute Auto 0.7 K/mm3 (0.1-0.6); Monocytes Percent Auto 9.6 % (2.6-8.5); Neutrophils Absolute Auto 4.9 K/mm3 (1.3-6.7); Neutrophils Percent Auto 68.8 % (45.5-73.1); Platelet Count Result 142 k/mm3 (150-375); Red Blood Count 3.68 M/mm3 (4.6-6.20); Red Cell Distribution Width 13.2 % (11.5-14.5); White Blood Count 7.1 K/mm3 (4.5-10.0)
[2022-05-18 08:17] LABS: Alanine Aminotransferase 68 U/L (6-50); Albumin Level 3.3 g/dL (3.5-5.1); Alkaline Phosphatase 145 U/L (38-126); Anion Gap 5 mmol/L (8-16); Aspartate Amino Transferase 58 U/L (17-59); Bilirubin,Total 1.2 mg/dL (0.2-1.3); Blood Urea Nitrogen 10 mg/dL (9-20); Calcium 8.4 mg/dL (8.4-10.2); Carbon Dioxide 24 mmol/L (22-30); Chloride 100 mmol/L (98-107); Estimated CRCL calculation 73 ml/min; Estimated Glomerular Filt Rate > 60; Glucose 163 mg/dL (65-110); Lipase 603 U/L (23-300); Potassium 3.7 mmol/L (3.4-5.0); Sodium 129 mmol/L (137-145)
[2022-05-18] MEDS: PANTOPRAZOLE 40 MG TABLET PO (08:58)
[2022-05-18] MEDS: lisinopriL 20 MG TABLET 40 MG PO (08:58)
[2022-05-18] MEDS: ACETAMINOPHEN 325 MG TABLET 650 MG PO (08:59)
--- NOTE | 2022-05-18 12:50 | PM.DS ---
DS: Admitting Diagnosis Discharge Date 05/18/22 Admitting Diagnosis acute biliary pancreatitis, acute cholecystitis DS: Discharge Diagnosis Discharge Diagnosis (1) Acute cholecystitis: Code(s): K81.0 - Acute cholecystitis Status: Acute Assessment and Plan: exam improved, continue low-fat diet, home with p.o. antibiotics, follow-up in 2 weeks to schedule interval cholecystectomy (2) Gallstone pancreatitis: Code(s): K85.10 - Biliary acute pancreatitis without necrosis or infection Status: Acute Assessment and Plan: exams and laboratory improved, continue low-fat diet, will need interval cholecystectomy DS: Summary Hospital Course Reason for hospitalization: acute cholecystitis, acute biliary pancreatitis Hospital Course: The patient is a 62-year-old male pre to the hospital with severe epigastric abdominal pain. Workup, including imaging and laboratory, consistent with acute cholecystitis and acute biliary pancreatitis. Given these findings, the patient was admitted to the surgical service. The patient was started on IV antibiotics and bowel rest. Following day the lipase level was much improved and the patient was started on a low-fat diet. On hospital day 2. , the patient was tolerating low-fat diet and abdominal pain is much improved. His laboratory have also improved including a lipase 600. The patient will be discharged home at this time with continued low fat diet and p.o. antibiotics. He will follow up with Dr. Nunez in 2 weeks to schedule interval cholecystectomy. Status at Discharge Functional status at discharge: independent ambulation Overall status at discharge: patient is progressing back to baseline Time Spent with Patient Time attestation: Total time spent providing and/or coordinating discharge services: Time spent: Less than 30 minutes Exam Const: General: cooperative, comfortable and no acute distress Resp: Auscultation: clear to auscultation bilaterally Cardio: Rate: regular rate Rhythm: regular rhythm GI: Inspection: normal to inspection and distended GI Palp: Yes abdominal tenderness, Yes Soft to palpation, Yes Tenderness to palpation present (GI), No Guarding due to palpation present (GI) and No Rigid due to palpation DS: Data Data Completed and Pending Labs on day of discharge: Labs from last 24 hours 05/18/22 05/18/22 06:55 06:55 WBC 7.1 RBC 3.68 L Hgb 12.7 L Hct 36.7 L MCV 99.7 MCH 34.5 H MCHC 34.6 RDW 13.2 Plt Count 142 L MPV 9.8 Immature Gran % (Auto) 0.6 H Neut % (Auto) 68.8 Lymph % (Auto) 20.3 [place] % (Auto) 9.6 H Eos % (Auto) 0.4 Baso % (Auto) 0.3 Lymph # (Auto) 1.44 [place] # (Auto) 0.7 H Eos # (Auto) 0.0 Baso # (Auto) 0.0 Abs Immat Gran (auto) 0.04 H Absolute Neuts (auto) 4.9 Absolute Nucleated RBC 0.0 Nucleated RBC % 0.0 Sodium 129 L Potassium 3.7 Chloride 100 Carbon Dioxide 24 Anion Gap 5 L BUN 10 Creatinine 0.90 Estim Creat Clear Calc 73 Estimated GFR > 60 Glucose 163 H Calcium 8.4 Total Bilirubin 1.2 AST 58 ALT 68 H Alkaline Phosphatase 145 H Total Protein 7.0 Albumin 3.3 L Lipase 603 H Preliminary micro results at discharge 05/15/22 11:14 Blood Culture - Preliminary Blood 05/15/22 11:15 Blood Culture - Preliminary Blood Discharge Plan Discharge Attending physician on discharge: Tk Nunez Discharging Clinician: Josefina Almaguer Anticipated Discharge Date/Time: 05/18/22 12:48 Patient Disposition: Home, Self-Care Activity: may shower and unlimited Diet: low fat Patient Instructions: Antibiotic Form, Cholecystitis (GEN), Gallstones (DC) Stand Alone Forms: General Discharge Information Follow-up/Referrals: Josefina Almaguer MD [Physician] - Tk Nunez MD [Physician] - 2 Weeks Discharge Medications: New ciprofloxacin HCl [Cipro] 500 mg tablet 500 mg PO Q12H Qty: 14 0RF
== END 2022-05-18 14:04 | disposition home or self-care (01) | DRG 439 ==
PROVIDERS: Nurse Practitioner Family; Admitting Provider Surgery; PCP Family Medicine; Visit Provider Surgery
DX: K85.10 Biliary acute pancreatitis without necrosis or infection (principal); K81.0 Acute cholecystitis; N17.9 Acute kidney failure, unspecified; I10 Essential (primary) hypertension; E78.5 Hyperlipidemia, unspecified; Z87.891 Personal history of nicotine dependence
CPT/HCPCS: 36415; 74177; 80053; 83690; 85025; 85027; 85610; 85730; 87040; 96365; 96366; 96374; 96375; 96376; A9270; C9113; G0378; G0379; J2270; J2543; J3480; J7030; J7040; J7042; J7120; Q9967

== ENCOUNTER 2022-06-05 08:57 | Outpatient (CLI) | payer OTHER, SELFPAY ==
--- NOTE | 2022-06-05 09:07 | ECG_ITS ---
Measurements Intervals [place] Rate: 72 P: 44 AR: 205 QRS: 30 QRSD: 85 T: 24 QT: 351 QTc: 385 Interpretive Statements SINUS RHYTHM NO PREVIOUS ECG AVAILABLE FOR COMPARISON Electronically Signed On 06-05-2022 15:28:05 [employer] by Laureano Nails M.D.
[2022-06-05 09:29] LABS: Sodium 135 mmol/L (137-145)
[2022-06-05 09:37] LABS: Alanine Aminotransferase 45 U/L (6-50); Albumin Level 4.3 g/dL (3.5-5.1); Alkaline Phosphatase 118 U/L (38-126); Amylase 107 U/L (30-110); Aspartate Amino Transferase 41 U/L (17-59); Bilirubin,Total 0.8 mg/dL (0.2-1.3); Lipase 298 U/L (23-300)
== END 2022-06-05 08:58 | disposition home or self-care (01) ==
LOC: ANHSURGERY 08:59
PROVIDERS: Anesthesiology; PCP Family Medicine; Visit Provider Surgery
DX: K81.1 Chronic cholecystitis (principal); E78.5 Hyperlipidemia, unspecified; I10 Essential (primary) hypertension; R79.89 Other specified abnormal findings of blood chemistry; Z01.818 Encounter for other preprocedural examination
CPT/HCPCS: 36415; 80076; 82150; 83690; 84295; 86850; 86900; 86901; 93005

== ENCOUNTER 2022-06-07 00:53 | Day surgery (SDC) | payer OTHER, SELFPAY ==
[2022-05-31 10:59] VITALS: BMI 25.1
--- NOTE | 2022-05-31 11:04 | PC.NURSE ---
Report to the Outpatient Waiting Room, entrance under the green pavilion located off [facility], at time 8:30 on date 06/07/22. Planned Procedure Time: 10:30. Time changes happen often and if your time is changed the preop area will call you the afternoon before. - You and your visitor will be asked to self-screen and do not enter if you have any COVID symptoms. - Only one visitor is requested with a max of two and NO children visitors are allowed at this time. - The patient visitor may be requested to leave or wait in car when not with patient due to distancing restrictions. - A mask is optional within the hospital at this time. Patients may have clear liquids (water, carbonated beverages, clear teas, apple juice) until 3 hours prior to surgery (7:30) with a maximum of 20 ounces. - No food from midnight until time of surgery Take the following medications with a SIP of water the morning of surgery: N/A DO NOT STOP ANY OF YOUR OTHER PRESCRIPTION MEDICATIONS PRIOR TO SURGERY EXCEPT THE FOLLOWING Medications to discontinue per physician: N/A Date to take last dose: N/A Please no make-up, nail cambodian, hairspray, perfume, deodorant, or body powder the day of surgery. No jewelry (including any body piercings) or valuables the day of surgery, leave them at home. Please take a shower or bath the night before, or the morning of, surgery with an antibacterial soap (HIBICLENS). Wear comfortable, loose fitting clothing. - Jewelry must be removed prior to entering the operating room. Rings and piercings that are not removed may be cut off. - The hospital will not accept responsibility for valuables. - Please leave all valuables, including medications, at home the day of surgery. If you are going home after surgery, a licensed miniature train driver must drive you home. - NO public transportation without another adult if you receive anesthesia. - We recommend that an adult stay with you for 24 hours following discharge. - We also recommend that you do not drive, make important decision, drink alcoholic beverages, or take any drugs that were not prescribed by your health care provider for at least 24 hours after your discharge time. Follow any additional instructions given to you from your surgeon. If you or anyone in your household have experienced Covid symptoms in the past week, please notify your surgeon or the nurse liaison at the phone number below for possible testing. Telephone instructions given to PT - NANCY LORD and asked if any additional questions and then verbalized understanding. Patient advised to call surgeon office or pre surgery nurse liaison [phone] if any additional questions.
--- NOTE | 2022-06-06 10:38 | WPDANESEPPF ---
Anes - Initial Pre Proc Eval Procedure: Operation Date: 06/07/22 09:30 Proposed Procedures p Robotic Assisted Cholecystectomy, Possible Open - Tk Nunez MD Date/Time: 06/06/22 10:38 Surgeon: Tk Nunez MD Pre Op Diagnosis: chronic cholecystitis second to gallbladder sludge Patient Data Age: 62 Gender: M Height: 1.75 m Weight: 77.11 kg Allergies Allergy/AdvReac Type Severity Reaction Status Date / Time Penicillins Allergy Unknown Rash Verified 05/31/22 10:58 Home Medications Medication Instructions Recorded Confirmed Type omeprazole 20 mg capsule,delayed 20 mg PO DAILY #90 caps 06/28/21 05/31/22 Rx release ezetimibe 10 mg tablet (Zetia) 10 mg PO DAILY #90 tabs 10/22/21 05/31/22 Rx lisinopril 40 mg tablet 40 mg PO DAILY #90 tabs 01/24/22 05/31/22 Rx Patient hx anesthesia problems: none Family hx anesthesia problems: none Results Review: All pre-operative results and documents have been reviewed as part of the pre-operative evaluation. [facility] Past Medical History Medical History Benign hypertension Hyperlipidemia Surgical History Surgical History History of knee surgery History of rotator cuff surgery Family History Family History Father Hypertension Cancer Mother Hypertension Sibling Hypertension Grandparent Family history of coronary artery disease Social History Social History Smoking packs per day: 1 Smoking cigarettes per day: 20.0 Years smoked: 15 Smoking pack-years: 15.00 Smoking status: Former smoker Tobacco type: cigarettes Second hand tobacco smoke exposure: Yes Smoking end date: 04/21/94 Alcohol intake: current Drinks per week: 8 Alcohol use details: SOCIAL - DEPENDING ON SPORTING EVENTS Substance use: never Substance use type: does not use Lack of Transportation: No Lack of Food: Never True Current Housing: I Have Housing Concerned About Future Housing: No Difficulty Paying Gas/Electric Bills: No Difficulty Paying for Meds: No Currently Unemployed: No Education: Don't Know Difficulty w/ Childcare or Family Care: No Living arrangements: with family Occupation/Education: retired Additional occupation/education comments: [employer] Gender identity (if verbalized by the patient): Male Sexual Orientation (if Verbalized by the Patient): Straight or Heterosexual Spiritual care concerns: No Agree to blood products: Yes Anes - Eval Final PreProcedure Day of Procedure 06/06/22 10:38 Patient weight: normal Heart: regular rate and rhythm Lungs: clear to auscultation Airway: Mallampati scale class II Neurological: alert and oriented Last oral intake: >/= 8 hours ASA classification: III Emergent: no Anesthetic plan: proceed Anesthesia type and monitoring: general ETT and standard monitoring Results Review: All pre-operative results and documents have been reviewed as part of the pre-operative evaluation. Informed Consent: The patient's anesthetic plan and its attendant risks and benefits were discussed with the patient/family/POA. Questions were solicited and answers provided to the satisfaction of the patient/family/POA.
[2022-06-07] VITALS (10 sets, daily range): BP systolic 109–174; BP diastolic 73–89; PULSE 45–95; RESP 10–16; TEMP 36.5–36.8; O2SAT 97–100
[2022-06-07] MEDS: ACETAMINOPHEN 500 MG TABLET 1000 MG PO (08:17)
[2022-06-07] MEDS: INDOCYANINE GREEN 25 MG VIAL 3.75 MG IV PUSH (08:26)
[2022-06-07] MEDS: LACTATED RINGERS 1,000 ML 30 ML IV CONT ×2 (08:26→12:13)
[2022-06-07] MEDS: KETOROLAC 15 MG/ML VIAL (*BKC) IV PUSH (08:27)
--- NOTE | 2022-06-07 09:36 | WPDHPUPDATE1 ---
History and Physical Update Update Date/Time: 06/07/22 09:36 History and Physical has been reviewed, including an updated exam of the patient. There are NO changes in the patient's condition. Risks, benefits, and alternatives have been discussed and questions answered. Patient agrees to proceed with procedure.
[2022-06-07] MEDS: ceFAZolin 2 GM/D5W 50 ML 2 GM/50 ML BAG IVPB (10:00)
[2022-06-07] MEDS: BUPivacaine HCL 0.5% PF 30 ML VIAL INFILTRATE (10:36)
[2022-06-07] MEDS: LIDO 1%/EPINEPHRINE 1:100,000 20 ML VIAL 30 ML INFILTRATE (10:37)
--- NOTE | 2022-06-07 12:25 | W.PM.PROC2 ---
Procedure Note - Detailed Date of Procedure 06/07/22 Pre-op Diagnosis chronic cholecystitis second to gallbladder sludge Post-op Diagnosis Same Procedure Performed Robotic assisted laparoscopic cholecystectomy Surgeon Tk Nunez MD Dispatcher Service Or Work SHOSHANA Hogan. Anesthesia General Indications The patient is a 62-year-old male who about 4 weeks ago was admitted to [facility] with acute biliary pancreatitis. Imaging of his gallbladder showed gallbladder sludge but no stones and mild thickening of the gallbladder wall. He was treated non operatively and his pancreatitis resolved. He returns now for an interval laparoscopic cholecystectomy via robotic assisted approach. Findings The gallbladder had chronic inflammatory changes with superimposed acute inflammation. The gallbladder was contracted and intrahepatic and the liver was mildly cirrhotic with cobblestoning of both lobes the liver. Description of Procedure After informed consent was obtained the patient was brought to the operating room where he was placed in a supine position and general endotracheal anesthesia was administered. The abdomen was then prepped and draped in usual sterile fashion. A time-out was performed correctly identifying the patient as well as procedure to be performed and verified that he was given perioperative IV antibiotics. I entered the abdomen the left upper quadrant utilizing a optical port. Once inside the abdomen insufflated to an adequate pneumoperitoneum of 15mmHg of CO2. There were no adhesions to obscure the abdominal wall around the umbilicus or the right upper quadrant of the abdomen. I then placed additional 8mm robotic trocar ports along across the mid abdominal wall. I then switched out the left upper quadrant trocar port to a formal 10mm laparoscopic trocar port. The [employer] robot was then brought to the patient's bedside and docked over the right shoulder. The robotic arms were then attached to robotic ports and the robotic instruments advanced into the abdomen under direct visualization. I then scrubbed out the procedure and sat down at the robotic console to perform the dissection robotically. The liver was mildly cirrhotic with cobblestoning. The gallbladder was contracted and intrahepatic and there was both chronic thickening as well as acute edema of the gallbladder wall suggestive of acute on chronic cholecystitis. I was able to hold the gallbladder near the dome with a robotic grasper and elevated gallbladder and right half liver. I then utilized another robotic grasper and the robotic hook cautery to start stripping down the visceral peritoneum off of the infundibular gallbladder. ICG had been injected into the patient in the preoperative area and so with the use of firefly immunofluorescence imaging on the robot I was able to identify what appeared to be the common bile duct. The cystic duct did not seem to light up very well. Continue my dissection down along the infundibular gallbladder to identified a tubular structure which ended in the infundibular gallbladder and extended down to the common bile duct which did light up with firefly. I circumferentially dissected out the structure and then I dissected out the cystic artery which was posterior medial to the presumed cystic duct. The posterior wall the gallbladder at the infundibulum was then dissected free of the liver until I had what I thought was the critical view. At this point I then placed 2 clips proximally in cystic duct and a clip distally high and infundibular gallbladder. The cystic duct was then divided with robotic hook cautery. The cystic artery was then clipped and divided in a similar fashion. The gallbladder was then resected off the liver utilizing robotic cautery dissection. Due to the acute and chronic inflammatory changes of the gallbladder wall and the fact that the gallbladder was intrahepatic I did enter the gallbladder wall at 1 point and there w
--- NOTE | 2022-06-07 12:39 | SUR.PHASEI ---
1238: Simple mask removed.
[2022-06-07] MEDS: oxyCODONE HCL (*CRX) 5 MG TAB IR PO (13:31)
[2022-06-07] MEDS: fentaNYL CITRATE INJ (*CRX) 100 MCG/2 ML VIAL 25 MCG IV PUSH ×2 (13:54→13:57)
[2022-06-07] MEDS: ONDANSETRON INJ 4 MG/2 ML VIAL IV PUSH (14:03)
== END 2022-06-07 15:06 | disposition home or self-care (01) ==
PROVIDERS: PCP Family Medicine; Visit Provider Surgery
PROC: 0FT44ZZ Resection of Gallbladder, Percutaneous Endoscopic Approach (ICD-10-PCS; CPT 47562; principal; 2022-06-07 09:30)
DX: K81.0 Acute cholecystitis (principal); I10 Essential (primary) hypertension; E78.5 Hyperlipidemia, unspecified; Z87.891 Personal history of nicotine dependence
CPT/HCPCS: 47562; S2900; 36415; 80076; 82150; 83690; 84295; 86850; 86900; 86901; 88304; 93005; A9270; J0690; J1100; J1170; J1885; J2250; J2405; J2704; J2710; J3010; J7120

== ENCOUNTER 2022-12-12 08:50 | Day surgery (SDC) | payer OTHER, SELFPAY ==
[2022-12-04 09:13] VITALS: BMI 25.4
[2022-12-05 09:45] VITALS: BMI 25.7
--- NOTE | 2022-12-11 12:41 | WPDANESEPPF ---
Anes - Initial Pre Proc Eval Procedure: Operation Date: 12/12/22 10:30 Proposed Procedures p Screening Colonoscopy - Robert Hunter MD Date/Time: 12/11/22 12:41 Surgeon: Robert Hunter MD Pre Op Diagnosis: Neoplasm Screening Patient Data Age: 62 Gender: M Height: 1.75 m Weight: 79 kg Allergies Allergy/AdvReac Type Severity Reaction Status Date / Time Penicillins Allergy Unknown Rash Verified 12/12/22 09:21 Home Medications Medication Instructions Recorded Confirmed Type omeprazole 20 mg capsule,delayed 20 mg PO DAILY #90 caps 06/28/21 12/12/22 Rx release lisinopril 40 mg tablet 40 mg PO DAILY #90 tabs 07/21/22 12/12/22 Rx ezetimibe 10 mg tablet (Zetia) 10 mg PO DAILY #90 tabs 10/19/22 12/12/22 Rx Patient hx anesthesia problems: none Family hx anesthesia problems: none Results Review: All pre-operative results and documents have been reviewed as part of the pre-operative evaluation. [facility] Past Medical History Medical History (Updated 12/11/22 @ 12:46 by Rajat Rae DO) Arrhythmia Benign hypertension Fatty liver Hyperlipidemia Pancreatitis PVCs (premature ventricular contractions) Surgical History Surgical History History of cholecystectomy 06/07/22 Robotic assisted laparoscopic cholecystectomy History of knee surgery History of rotator cuff surgery Family History Family History Father Hypertension Cancer Mother Hypertension Sibling Hypertension Grandparent Family history of coronary artery disease Social History Social History Smoking packs per day: 1 Smoking cigarettes per day: 20.0 Years smoked: 15 Smoking pack-years: 15.00 Smoking status: Former smoker Tobacco type: cigarettes Second hand tobacco smoke exposure: Yes Smoking end date: 04/21/94 Alcohol intake: current Drinks per week: 8 Alcohol use details: SOCIAL - DEPENDING ON SPORTING EVENTS Substance use: never Substance use type: does not use Lack of Transportation: No Lack of Food: Never True Current Housing: I Have Housing Concerned About Future Housing: No Difficulty Paying Gas/Electric Bills: No Difficulty Paying for Meds: No Currently Unemployed: No Education: Don't Know Difficulty w/ Childcare or Family Care: No Living arrangements: with family Occupation/Education: retired Additional occupation/education comments: [employer] Gender identity (if verbalized by the patient): Male Sexual Orientation (if Verbalized by the Patient): Straight or Heterosexual Spiritual care concerns: No Agree to blood products: Yes Anes - Eval Final PreProcedure Day of Procedure 12/11/22 12:41 Patient weight: overweight Heart: regular rate and rhythm Lungs: clear to auscultation Airway: Mallampati scale class II Neurological: alert and oriented Last oral intake: >/= 8 hours ASA classification: III Emergent: no Anesthetic plan: proceed Anesthesia type and monitoring: general GIVS and standard monitoring Results Review: All pre-operative results and documents have been reviewed as part of the pre-operative evaluation. Informed Consent: The patient's anesthetic plan and its attendant risks and benefits were discussed with the patient/family/POA. Questions were solicited and answers provided to the satisfaction of the patient/family/POA.
[2022-12-12 09:20] VITALS: BP 141/93; PULSE 65; RESP 18; O2SAT 100
[2022-12-12] MEDS: LACTATED RINGERS 1,000 ML 150 ML IV CONT (09:37)
--- NOTE | 2022-12-12 10:04 | PM.HPGS ---
History of Present Illness History of Present Illness Consent: Risks, benefits, and alternatives have been discussed and questions answered. Patient agrees to proceed with procedure. Chief complaint: Neoplasm Screening Narrative: Alf Alston is a 62 year old male here for first screening colonoscopy Review of Systems Constitutional: Constitutional: Denies headache(s) and Denies weakness Eyes: Eyes: Denies blurry vision ENT: Reports Normal hearing present, Denies headache(s) and Denies neck pain Cardiovascular: Cardiovascular: Denies chest pain and Denies dyspnea Respiratory: Respiratory: Denies dyspnea Gastrointestinal: Gastrointestinal: Reports no additional gastrointestinal complaints Genitourinary: Genitourinary: Denies dysuria Musculoskeletal: Musculoskeletal: Denies neck pain Integumentary/Breasts: Skin/Breast: Denies dry skin Neurologic: Reports Normal hearing present, Denies headache(s) and Denies weakness Psychiatric: Psychiatric: Denies anxiety Endocrine: Endocrine: Denies change in body appearance Hematologic/Lymphatic: Hematologic/Lymphatic: Denies easy bleeding Allergic/Immunologic: Allergic/Immunologic: Denies urticaria [facility] Past Medical History Medical History (Updated 12/11/22 @ 12:46 by Rajat Rae DO) Arrhythmia Benign hypertension Fatty liver Hyperlipidemia Pancreatitis PVCs (premature ventricular contractions) Surgical History Surgical History History of cholecystectomy 06/07/22 Robotic assisted laparoscopic cholecystectomy History of knee surgery History of rotator cuff surgery Family History Family History Father Hypertension Cancer Mother Hypertension Sibling Hypertension Grandparent Family history of coronary artery disease Social History Social History Smoking packs per day: 1 Smoking cigarettes per day: 20.0 Years smoked: 15 Smoking pack-years: 15.00 Smoking status: Former smoker Tobacco type: cigarettes Second hand tobacco smoke exposure: Yes Smoking end date: 04/21/94 Alcohol intake: current Drinks per week: 8 Alcohol use details: SOCIAL - DEPENDING ON SPORTING EVENTS Substance use: never Substance use type: does not use Lack of Transportation: No Lack of Food: Never True Current Housing: I Have Housing Concerned About Future Housing: No Difficulty Paying Gas/Electric Bills: No Difficulty Paying for Meds: No Currently Unemployed: No Education: Don't Know Difficulty w/ Childcare or Family Care: No Living arrangements: with family Occupation/Education: retired Additional occupation/education comments: [employer] Gender identity (if verbalized by the patient): Male Sexual Orientation (if Verbalized by the Patient): Straight or Heterosexual Spiritual care concerns: No Agree to blood products: Yes Meds Home Medications and Allergies Home Medications Medication Instructions Recorded Confirmed Type omeprazole 20 mg capsule,delayed 20 mg PO DAILY #90 caps 06/28/21 12/12/22 Rx release lisinopril 40 mg tablet 40 mg PO DAILY #90 tabs 07/21/22 12/12/22 Rx ezetimibe 10 mg tablet (Zetia) 10 mg PO DAILY #90 tabs 10/19/22 12/12/22 Rx Allergies Allergy/AdvReac Type Severity Reaction Status Date / Time Penicillins Allergy Unknown Rash Verified 12/12/22 09:21 Vital Signs Vital Signs - 24 hr 12/12/22 09:20 Pulse Rate 65 Respiratory Rate 18 Blood Pressure 141/93 H Pulse Oximetry 100 Oxygen Delivery Room Air Exam Const: General: comfortable and no acute distress HENMT: Face/Nose/Sinus: Normal nares present Eyes: General: appearance normal, both eyes and all related structures Neck: Neck: no JVD Resp: Auscultation: clear to auscultation bilaterally Cardio
[2022-12-12 10:23] VITALS: BP 102/79; PULSE 91; RESP 18; O2SAT 97
[2022-12-12 10:33] VITALS: BP 119/81; PULSE 76; RESP 16; O2SAT 99
--- NOTE | 2022-12-12 10:35 | WPDANESPN ---
Anes - Prog Note Post-Op Date/Time: 12/12/22 10:35 Cardiovascular status: normal Respiratory status: normal Airway patency: baseline Mental status: baseline Post-Op hydration status: normal Vital Signs: Last Vital Signs Pulse 65 12/12/22 09:20 Resp 18 12/12/22 09:20 BP 141/93 H 12/12/22 09:20 Pulse Ox 100 12/12/22 09:20 O2 Del Method Room Air 12/12/22 09:20 Pain Score (VAS): 0 I/O: Intake & Output 12/11/22 12/12/22 12/12/22 23:59 07:59 15:59 Intake Total 500 Balance 500 Post-procedural complaints: none Patient Feedback: Patient satisfied with anesthetic care. Other Findings: Patient vital signs back to baseline. Patient denies nausea and vomiting. Patient's pain under control. Patient OK for discharge.
[2022-12-12 10:43] VITALS: BP 119/81; PULSE 68; RESP 14; O2SAT 98
== END 2022-12-12 11:01 | disposition home or self-care (01) ==
PROVIDERS: PCP Family Medicine; Visit Provider Internal Medicine Gastroenterology
PROC: 0DJD8ZZ Inspection of Lower Intestinal Tract, Via Natural or Artificial Opening Endoscopic (ICD-10-PCS; CPT 45378; principal; 2022-12-12 10:30)
DX: Z12.11 Encounter for screening for malignant neoplasm of colon (principal)
CPT/HCPCS: 45378

== ENCOUNTER 2023-02-13 11:36 | Outpatient (CLI) | payer OTHER, SELFPAY ==
--- NOTE | ~2023-02-13 | XR_ITS ---
XR knee LT min 4V 02/13/2023 11:56 Indication: Left knee pain Procedure: 4 views left knee Comparison: No prior studies for comparison. Findings: There is moderate-severe tricompartment osteoarthritis. No fracture, subluxation or disloca tion. No joint effusion. Impression: 1: Moderate-severe osteoarthritis of the left knee. Reviewed, dictated and finalized at location L. Impression: 1: Moderate-severe osteoarthritis of the left knee.
== END 2023-02-13 11:37 | disposition home or self-care (01) ==
LOC: ANHIMG 11:39
PROVIDERS: PCP Family Medicine; Visit Provider Family Medicine
DX: M17.12 Unilateral primary osteoarthritis, left knee (principal)
CPT/HCPCS: 73564

== ENCOUNTER 2023-08-11 14:10 | Outpatient (CLI) | payer MEDICARE, SELFPAY ==
--- NOTE | ~2023-08-11 | XR_ITS ---
EXAMINATION: XR cervical spine 4-5V DATE: 08/11/2023 14:22 INDICATION: Neck pain. TECHNIQUE: 4 views of cervical spine were obtained. COMPARISON: None. FINDINGS: There is 7 degrees levocurvature of cervicothoracic spine. Vertebral body heights are rena l. There is interbody fusion at C3-C4. Intervertebral disc heights are normal. There is multilevel fa cet joint osteoarthritis, severe on the left at multiple levels. There is multilevel mild uncovertebr al joint osteoarthritis. No central canal stenosis or prevertebral soft tissue swelling. IMPRESSION: 1. Mild cervical spondylosis. Reviewed, dictated and finalized at location E.
== END 2023-08-11 14:11 ==
LOC: MICIMG 14:11
PROVIDERS: PCP Physician Assistant; Visit Provider Physician Assistant
DX: M47.892 Other spondylosis, cervical region (principal)
CPT/HCPCS: 72050

== ENCOUNTER 2024-05-24 07:54 | Outpatient (CLI) | payer MEDICARE, SELFPAY ==
--- OUTSIDE RECORDS SUMMARY | 2024-05-24 08:03 | XMS_ITS | Clinical Summary ---
[facility] Address [address] [place] [address] Care Team Providers Care Lead Assistant Manager Name Role Phone Bonifacio Murray MD Primary Care Provider [phone] Allergies Active Allergy Reactions Criticality Noted Date Comments Penicillins Rash Low 04/27/2021 Medications ezetimibe (ZETIA) 10 mg tablet 1 Active lisinopriL (PRINIVIL) 40 mg tablet 1 Active omeprazole (PriLOSEC) 20 mg Capsule, Delayed Release(E.C.) omeprazole 20 mg capsule,delayed release Active dietary supplement (PHOSPHATIDYL CHOLINE MIXTURE ORAL) Active turmeric 400 mg Capsule Active clobetasoL (TEMOVATE) 0.05 % Solution APPLY TO RASH TWICE DAILY UP TO 4 WEEKS. DO NOT APPLY TO FACE, GROIN OR ARMPITS. 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 Family History Medical History Relation Name Comments Skin Cancer Father Heart Disease Mother Relation Name Status Comments Brother Alive Father Mother Social History Tobacco Use Types Packs/Day Years Used Date Smoking Tobacco: Former Cigarettes Cigars Smokeless Tobacco: Never Alcohol Use Standard Drinks/Week Comments Not Currently 0 (1 standard drink = 0.6 oz pur e alcohol) Sex and Gender Information Value Date Recorded Sex Assigned at Not on file 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 Gender Identity Not on file Sexual Orientation Not on file Last Filed Vital Signs Vital Sign Reading Time Taken Comments Blood Pressure 137/79 12/10/2021 11:05 AM CDT Pulse 60 12/10/2021 11:05 AM CDT Temperature 36.9 ??C (98.5 ??F) 12/10/2021 11:05 AM C DT Respiratory Rate - - Oxygen Saturation 98% 12/10/2021 11:05 AM CDT Inhaled Oxygen Concentration - - Weight 79.6 kg (175 lb 6.4 oz) 12/10/2021 11:05 AM CDT Height 175.3 cm (5' 9 ) 12/10/2021 11:05 AM CDT Body Mass Index 25.9 12/10/2021 11:05 AM CDT Plan of Treatment Health Maintenance Due Date Last Done Comments DTAP/TDAP/TD VACCINES (1 - Tdap) 1977 COLORECTAL SCREENING 2003 Colorectal Cancer Screening 2003 FIT-DNA Q 3 years 2003 FIT/FOBT Q 1 year 2003 Flex Sig/CT Colonography Q 5 years 2003 PNEUMOCOCCAL VACCINE 65+ YEARS (1 of 1 - PCV) 03/05/20 08 ZOSTER VACCINE (1 of 2) 2008 INFLUENZA VACCINE (#1) 2023 RSV VACCINE (60+ or ) (1 - 1-dose 75+ series) 2033 Insurance [facility] [address] [id number] [facility] [id number] Care Teams Lead Assistant Manager Relationship Specialty Start Date End Date Bonifacio Murray MD [address] [place] [address] PCP - General Family Practice 04/27/21
--- NOTE | 2024-05-24 08:40 | ECG_ITS ---
Test Date: 2024-05-24 08:52:54 Measurements Intervals Rowe Rate: 57 P: 31 MA: 210 QRS: -14 QRSD: 88 T: 15 QT: 382 QTc: 372 Interpretive Statements SINUS BRADYCARDIA WITH FIRST DEGREE AV BLOCK BORDERLINE R WAVE PROGRESSION, ANTERIOR LEADS BASELINE ARTIFACT- I, II, III, AVR, AVL, AVF BORDERLINE ECG No previous ECG available for comparison Electronically Signed On 05-24-2024 09:37:52 RN IMAGING by Florentin Arias D.O.
[2024-05-24 09:45] LABS: Basophils Percent Auto 0.6 % (0.2-1.2); Eosinophils Percent Auto 0.9 % (0-4.4); Hematocrit 37.8 % (42.0-52.0); Hemoglobin 11.5 g/dL (14.0-18.0); Immature Granulocyte Absolute 0.01 K/mm3 (0.00-0.031); Immature Granulocyte Percent A 0.2 % (0-0.5); Lymphocytes Absolute Auto 2.35 K/mm3 (0.9-3.2); Lymphocytes Percent Auto 50.3 % (18.3-44.2); Mean Corpuscular HGB Conc 30.4 g/dl (32-36); Mean Corpuscular Hemoglobin 26.7 pg (26-34); Mean Corpuscular Volume 87.9 fl (80-100); Mean Platelet Volume 10.6 fl (7.4-10.4); Monocytes Absolute Auto 0.6 K/mm3 (0.1-0.6); Monocytes Percent Auto 12.6 % (2.6-8.5); Neutrophils Absolute Auto 1.7 K/mm3 (1.3-6.7); Neutrophils Percent Auto 35.4 % (45.5-73.1); Platelet Count Result 114 k/mm3 (150-375); Red Cell Distribution Width 17.8 % (11.5-14.5); White Blood Count 4.7 K/mm3 (4.5-10.0)
[2024-05-24 09:57] LABS: Albumin Level 4.1 g/dL (3.5-5.1); Estimated Glomerular Filt Rate > 60; Glucose 97 mg/dL (65-110)
[2024-05-24 10:17] LABS: Hemoglobin A1C 6.2 % (<5.7)
[2024-05-24 10:40] LABS: Urine Cotinine NEGATIVE
[2024-05-24 10:57] LABS: MRSA (PCR) NOT DETECTED (NOT DETECTE)
== END 2024-05-24 07:55 | disposition home or self-care (01) ==
LOC: ANHSURGERY 07:58
PROVIDERS: PCP Family Medicine; Visit Provider Orthopaedic Surgery
DX: Z01.818 Encounter for other preprocedural examination (principal); M17.12 Unilateral primary osteoarthritis, left knee; R94.31 Abnormal electrocardiogram [ECG] [EKG]
CPT/HCPCS: 80307; 82040; 82565; 82947; 83036; 85025; 87641; 93005

== ENCOUNTER 2024-06-07 01:15 | Day surgery (SDC) | payer MEDICARE, SELFPAY ==
--- NOTE | 2024-05-24 08:01 | PC.NURSE ---
Addendum entered by Zoila Heredia RN 05/24/24 14:49: HOLD NAPROXEN PER DR PETTIT Original Note: Report to the Outpatient Waiting Room, entrance under the green pavilion located off [facility], at time __6 am on date _06/07/24 . Planned Procedure Time: _7:30 am .? Time changes happen often and if your time is changed the preop area will call you the afternoon before. - You and your visitor will be asked to self-screen and do not enter if you have any COVID symptoms. Please call surgeon if you need to reschedule. - A mask is optional within the hospital at this time. Patients may have clear liquids (water, carbonated beverages, clear teas, apple juice) until 3 hours prior to surgery( 4:30 am) with a maximum of 20 ounces. - No food from midnight until time of surgery and no smoking. This includes no chewing gum, candy or mints. Take only the following medications with a SIP of water on the morning of surgery: NONE MAY TAKE TYLENOL IF NEEDED FOR PAIN DO NOT STOP ANY OF YOUR OTHER PRESCRIPTION MEDICATIONS PRIOR TO SURGERY EXCEPT THE FOLLOWING Medications to discontinue per physician NONE Date to take last dose Please no make-up, nail lithuanian, hairspray, perfume, deodorant, or body powder the day of surgery.? No jewelry (including any body piercings) or valuables the day of surgery, leave them at home.? Please take a shower or bath the night before, or the morning of, surgery with an antibacterial soap.? Wear comfortable, loose fitting clothing.? Children are encouraged to wear pajamas. - Jewelry must be removed prior to entering the operating room.? Rings and piercings that are not removed may be cut off. - The hospital will not accept responsibility for valuables.? - Please leave all valuables, including medications, at home the day of surgery. If you are going home after surgery, a licensed waste collection driver must drive you home.? - NO public transportation without another adult if you receive anesthesia. - We recommend that an adult stay with you for 24 hours following discharge. - We also recommend that you do not drive, make important decision, drink alcoholic beverages, or take any drugs that were not prescribed by your health care provider for at least 24 hours after your discharge time. Hold all vitamins and supplements for 3 days per anesthesiologist. Follow any additional instructions given to you from your surgeon. VERBALAND WRITTEN instructions given to __PATIENT AND PENNY and asked if any additional questions and then verbalized understanding. Patient advised to call surgeon office or pre surgery nurse liaison [phone] if any additional questions.
[2024-05-24 08:02] VITALS: BMI 27.7
[2024-05-24 08:40] VITALS: BP 140/89; PULSE 60; RESP 18; TEMP 37.2; O2SAT 100
[2024-06-07] VITALS (16 sets, daily range): BP systolic 136–167; BP diastolic 61–99; PULSE 41–90; RESP 10–18; TEMP 36.4–37.3; O2SAT 92–100
--- NOTE | ~2024-06-07 | XR_ITS ---
EXAMINATION: [id number] DATE: 06/07/2024 09:48 INDICATION: Total left knee arthroplasty. Postop. TECHNIQUE: 2 views of left knee were obtained. COMPARISON: None. FINDINGS: There is a total left knee arthroplasty with patellar resurfacing in near-anatomic alignmen t. No fracture. There is gas in the knee joint and soft tissues, consistent with recent surgery. Ante rior skin samuel are noted. IMPRESSION: 1. Total left knee arthroplasty in near-anatomic alignment. Reviewed, dictated and finalized at location A. TING ADVISER
--- OUTSIDE RECORDS SUMMARY | 2024-06-07 01:18 | XMS_ITS ---
Author Organization [facility] Address [address] [place] [address] Care Team Providers Care Fiberglass Bonding Machine Tender Name Role Phone Terri RODRIGUEZ, Bonifacio Primary Care Provider Unavaila Reta Christensen Unavailable [phone] ZZ-Migration, Provider Unavailable Unavailab le Allergies Allergen (clinical drug ingredient) Drug/Non Drug Allergy documented on EMR Reaction Allergy Type Onset Date Status Penicillin rash Drug Allergy Active [facility] Encounter Medications Medication SIG (Take, Route, Fr equency, Duration) Notes Start Date End Date Status Ezetimibe 10 MG 1 tab(s) orally once a day for 30 day(s) Active Lisinopril 40 MG 1 tab(s) orally once a day for 30 day(s) Active Omeprazole 20 MG 1 cap(s) orally once a day for 30 day(s) Active Encounters Encounter Location Date Provider Diagnosis [address] [place] [address] 10/04/2023 Provider ZZ-Migration Plan Of Treatment No Information Progress Notes * Alf LORDDOB:1960 (64 yo M)Acc No.[id number]:10/04/2023 Patient: Dieter Alf BURNS Provider: Buck díaz Migration :1960 A ge:63 Y S ex:Male Date:10/04/2023 Address:[address], [place], [place]-[address] Pcp:Bonifacio Murray MD Subjective: * Chief Complaints: * 1 . [facility] To [facility] Conversion Encounter. * Medical History: * Medications: T aking Ezetimibe 10 MG Tablet 1 tab(s) orally once a day , Taking Omeprazole 20 MG Capsule Delayed Release 1 cap(s) orally once a day , Taking Lisinopril 40 MG Tablet 1 tab(s) orally once a day * Allergies: P enicillin: rash. Objective: * Vitals: Assessment: Plan: * Treatment: * Billing Information: * Visit Code: * Procedure Codes: * Electronic signature of Ricco THOMPSON-Migration on 06/07/2024 at 01:18 AM CARPET INSTALLER HELPER Sign off status: Pending * Provider: Buck díaz Migration Date: 0 10/04/2023 Generated for Shimon lee/Len/Dg on: 0 06/07/2024 01:18 AM CARPET INSTALLER HELPER
--- OUTSIDE RECORDS SUMMARY | 2024-06-07 01:19 | XMS_ITS | Patient Health Record ---
Author Organization [facility] Address [address] [place] [address] Care Team Providers Care Marine Technician Name Role Phone Terri RODRIGUEZ, Bonifacio Primary Care Provider Unavaila Reta Christensen Unavailable [phone] ZZ-Migration, Provider Unavailable Unavailab le Allergies Allergen (clinical drug ingredient) Drug/Non Drug Allergy documented on EMR Reaction Allergy Type Onset Date Status Penicillin rash Drug Allergy Active Reason For Referral No Information Medications Medication SIG (Take, Route, Fr equency, Duration) Notes Start Date End Date Status Ezetimibe 10 MG 1 tab(s) orally once a day for 30 day(s) Active Lisinopril 40 MG 1 tab(s) orally once a day for 30 day(s) Active Omeprazole 20 MG 1 cap(s) orally once a day for 30 day(s) Active OMEPRAZOLE 20 mg 1 cap(s) orally once a day for 30 day(s) Active EZETIMIBE 10 mg 1 tab(s) orally once a day for 30 day(s) Active LISINOPRIL 40 mg 1 tab(s) orally once a day for 30 day(s) Active Social History Tobacco Use: Social History Observation Description Date Details (start date - stop date) Former Smoker NA - NA Smoking Smart Form: Question Answer Notes Are you a: former smoker Problems Problem Type SNOMED Code ICD Code Onset Dates Problem Status W/U Status Risk Notes Problem Hyperlipidemia (28419371) Hyperlipidemia, unspecified (E78.5) Active confirmed Problem Chronic allergic conjunctivitis (64397078) Other chronic allergic conjunctivitis (H10.45) Active confirmed Problem Allergic rhinitis caused by pollen (disorder) (37327409) Allergic rhinitis due to pollen (J30.1) Active confirmed Problem Gastro-esophageal reflux disease without esophagitis (912776717) Gastro-esophageal reflux disease without esophagitis (K21.9) Active confirmed Problem Generalized skin eruption due to drugs and medicaments taken internally (L27.0) Active confirmed Problem Adverse reaction to penicillins (836214186) Adverse effect of penicillins, initial encounter (T36.0X5A) Active confirmed Problem Essential hypertension (81522943) Essential (primary) hypertension (I10) Active confirmed Encounters Encounter Location Date Provider Diagnosis [facility] [address] [place] [address] 10/04/2023 Provider ZZ-Migration Plan Of Treatment No Information Insurance Providers Payer Name Payer Address Payer Phone Subscriber Number Group Number Insured Name Patient Relationship to Insured Coverage Start Date Coverage End Date [facility] [address] [place] [address] [phone] [id number] Alf Alston Self - patient is the insured Medical (General) History Medical History History ICD Code Essential (primary) hypertension I10 Gastro-esophageal reflux disease without esophagitis K21.9 Hyperlipidemia, unspecified E78.5 Surgical History Surgery Date(Month/Year) Tonsillectomy Knee Surgery Shoulder Surgery
--- OUTSIDE RECORDS SUMMARY | 2024-06-07 01:19 | XMS_ITS | Clinical Summary ---
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 [address] PCP - General Family Practice 04/27/21
--- NOTE | 2024-06-07 06:33 | P.PNAN_ITS ---
Anes - Initial Pre Proc Eval Procedure: Operation Date: 06/07/24 07:30 Proposed Procedures p Left Total Knee Arthroplasty - Zeus Yeager MD Date/Time: 06/07/24 06:33 Surgeon: Zeus Yeager MD Pre Op Diagnosis: oa left knee Patient Data Age: 64 Gender: M Height: 1.74 m Weight: 84 kg Last Vital Signs Temp 37.2 C 05/24/24 08:40 Pulse 60 05/24/24 08:40 Resp 18 05/24/24 08:40 BP 140/89 05/24/24 08:40 Pulse Ox 100 05/24/24 08:40 O2 Del Method Room Air 05/24/24 08:40 Allergies Allergy/AdvReac Type Severity Reaction Status Date / Time Penicillins Allergy Unknown Rash Verified 06/07/24 07:15 Home Medications ?Medication ?Instructions ?Recorded ?Confirmed ?Type lisinopril 40 mg tablet 40 mg PO DAILY #90 tabs 03/16/24 05/24/24 Rx omeprazole 20 mg capsule,delayed 20 mg PO DAILY #90 caps 03/16/24 05/24/24 Rx release ezetimibe 10 mg tablet (Zetia) 10 mg PO DAILY #90 tabs 03/21/24 05/24/24 Rx acetaminophen 500 mg tablet 500 mg PO Q6H PRN pain 05/24/24 05/24/24 History (Tylenol Extra Strength) naproxen sodium 220 mg tablet 220 mg PO BID PRN pain 05/24/24 05/24/24 History (Aleve) Patient hx anesthesia problems: none Family hx anesthesia problems: none Results Review: All pre-operative results and documents have been reviewed as part of the pre- operative evaluation. [facility] Past Medical History Medical History Knee osteoarthritis Pancreatitis Arrhythmia Benign hypertension Elevated liver enzymes Fatty liver Hyperlipidemia PVCs (premature ventricular contractions) Surgical History Surgical History History of cholecystectomy 06/07/22 Robotic assisted laparoscopic cholecystectomy History of rotator cuff surgery History of knee surgery Family History Family History Father Hypertension Cancer Mother Hypertension Sibling Hypertension Grandparent Family history of coronary artery disease Social History Social History Smoking packs per day: 1 Smoking cigarettes per day: 20.0 Years smoked: 15 Smoking pack-years: 15.00 Smoking status: Former smoker Tobacco type: cigarettes Second hand tobacco smoke exposure: Yes Smoking end date: 04/21/94 Additional smoking assessment comments: DENIES ANY FORM OF TOBACCO USE Alcohol intake: current Drinks per week: 8 Alcohol use details: SOCIAL - DEPENDING ON SPORTING EVENTS Substance use: current Substance use type: marijuana Other substance usage details: gummies Do You Feel Safe in your Home?: Yes Lack of Transportation: No Lack of Food: Never True Current Housing: I Have Housing Concerned About Future Housing: No Difficulty Paying Gas/Electric Bills: No Difficulty Paying for Meds: No Currently Unemployed: No Education: Associate Degree Difficulty w/ Childcare or Family Care: No Living arrangements: with family Occupation/Education: retired Additional occupation/education comments: [employer] Gender identity (if verbalized by the patient): Male Sexual Orientation (if Verbalized by the Patient): Straight or Heterosexual Spiritual care concerns: No Agree to blood products: Yes Anes - Eval Final PreProcedure Day of Procedure 06/07/24 06:33 Patient weight: overweight Heart: regular rate and rhythm Lungs: clear to auscultation Airway: Mallampati scale class II Neurological: alert and oriented Last oral intake: >/= 8 hours ASA classification: III Emergent: no Anesthetic plan: proceed Anesthesia type and monitoring: general LMA and standard monitoring Results Review: All pre-operative results and documents have been reviewed as part of the pre- operative evaluation. Informed Consent: The patient's anesthetic plan and its attendant risks and benefits were discussed with the patient/family/POA. Questions were solicited and answers provided to the satisfaction of the patient/family/POA.
[2024-06-07 06:40] LABS: Mean Platelet Volume 9.7 fl (7.4-10.4); Platelet Count Result 120 k/mm3 (150-375)
[2024-06-07] MEDS: TRANEXAMIC ACID 1,000MG/ISO100 1,000 MG/100 ML BAG 200 MG IVPB (06:50)
[2024-06-07] MEDS: VANCOMYCIN 1,250 MG/NS 250 ML BAG 166.67 MG IVPB (06:50)
[2024-06-07] MEDS: ACETAMINOPHEN 500 MG TABLET 1000 MG PO (06:50)
[2024-06-07] MEDS: LACTATED RINGERS 1,000 ML 30 ML IV CONT (06:50)
--- NOTE | 2024-06-07 06:52 | WPDHPUPDATE1 ---
History and Physical Update Update Date/Time: 06/07/24 06:52 History and Physical has been reviewed, including an updated exam of the patient. There are NO changes in the patient's condition. Risks, benefits, and alternatives have been discussed and questions answered. Patient agrees to proceed with procedure.
--- NOTE | 2024-06-07 07:15 | PM.IMHP ---
H&P: HPI History of Present Illness Date/Time: 06/07/24 07:15 Chief Complaint: Patient has arthritic left knee. He has failed conservative treatment like to proceed with knee replacement surgery. Review of Systems Musculoskeletal: Musculoskeletal: Reports myalgias, Reports arthralgias, Reports joint swelling and Reports neck pain Neurologic: Reports abnormal gait [facility] Past Medical History Medical History (Updated 06/07/24 @ 07:18 by Zeus Yeager MD) Osteoarthritis of knees, bilateral Knee osteoarthritis Pancreatitis Arrhythmia Benign hypertension Elevated liver enzymes Fatty liver Hyperlipidemia PVCs (premature ventricular contractions) Surgical History Surgical History History of cholecystectomy 06/07/22 Robotic assisted laparoscopic cholecystectomy History of rotator cuff surgery History of knee surgery Family History Family History Father Hypertension Cancer Mother Hypertension Sibling Hypertension Grandparent Family history of coronary artery disease Social History Social History Smoking packs per day: 1 Smoking cigarettes per day: 20.0 Years smoked: 15 Smoking pack-years: 15.00 Smoking status: Former smoker Tobacco type: cigarettes Second hand tobacco smoke exposure: Yes Smoking end date: 04/21/94 Additional smoking assessment comments: DENIES ANY FORM OF TOBACCO USE Alcohol intake: current Drinks per week: 8 Alcohol use details: SOCIAL - DEPENDING ON SPORTING EVENTS Substance use: current Substance use type: marijuana Other substance usage details: gummies Do You Feel Safe in your Home?: Yes Lack of Transportation: No Lack of Food: Never True Current Housing: I Have Housing Concerned About Future Housing: No Difficulty Paying Gas/Electric Bills: No Difficulty Paying for Meds: No Currently Unemployed: No Education: Associate Degree Difficulty w/ Childcare or Family Care: No Living arrangements: with family Occupation/Education: retired Additional occupation/education comments: [employer] Gender identity (if verbalized by the patient): Male Sexual Orientation (if Verbalized by the Patient): Straight or Heterosexual Spiritual care concerns: No Agree to blood products: Yes Meds Home Medications and Allergies Home Medications ?Medication ?Instructions ?Recorded ?Confirmed ?Type lisinopril 40 mg tablet 40 mg PO DAILY #90 tabs 03/16/24 05/24/24 Rx omeprazole 20 mg capsule,delayed 20 mg PO DAILY #90 caps 03/16/24 05/24/24 Rx release ezetimibe 10 mg tablet (Zetia) 10 mg PO DAILY #90 tabs 03/21/24 05/24/24 Rx acetaminophen 500 mg tablet 500 mg PO Q6H PRN pain 05/24/24 05/24/24 History (Tylenol Extra Strength) naproxen sodium 220 mg tablet 220 mg PO BID PRN pain 05/24/24 05/24/24 History (Aleve) Allergies Allergy/AdvReac Type Severity Reaction Status Date / Time Penicillins Allergy Unknown Rash Verified 06/07/24 07:15 Vital Signs Vital Signs - 24 hr 06/07/24 06:50 Temperature 97.6 F Pulse Rate 64 Respiratory Rate 14 Blood Pressure 136/73 Pulse Oximetry 100 Oxygen Delivery Room Air Exam Narrative: On exam he is motion his knee from about 3 to 110? varus deformity he walks with a mildly antalgic gait. Her appears grossly pain with any manipulation. Eyes: General: appearance normal, both eyes and all related structures Neck: Neck: supple Resp: Effort & Inspection: normal respiratory effort Cardio: Rate: regular rate Rhythm: regular rhythm Radiology Reports: Comments: Patient: Alf Alston Results of Diagnostic Exam (Interpreted Today) Order: 04/15/24 07:15 XR knee BI 3V Routine Interpretation: AP lateral skyline view both knees demonstrate [id number] arthritis medially with varus deformity. No fracture, lesions, or masses are appreciated. Knee X-Ray 04/15/24 Orthopedics Result Report 04/15/24 Cervical Spine X-Ray 08/12/23 H&P: Results Labs Labs: Short CBC 06/07/24 Range/Units 06:34 Plt Count 120 L (150-375) k/mm3 Assessment and Plan Assessment and plan (1) Osteoarthritis of left knee: Code(s): M17.12 - Unilateral primary osteoarthritis, left knee Status: Acute Plan Patient has osteoarthritis both knees. The left knee is most painful at this time. He has failed conservative treatment like to consider knee replacement surgery. I discussed this with him. Risks, benefits, limitations, and alternatives were discussed in detail. He would like to proceed. Will proceed per his request.
[2024-06-07] MEDS: ceFAZolin 2 GM/D5W 50 ML 2 GM/50 ML BAG IVPB ×2 (07:28→17:15)
[2024-06-07] MEDS: SODIUM CHLORIDE 0.9% IV 37.7 ML, MORPHINE SULFATE INJ (*CRX) 2 MG, ROPivacaine HCL 1% 2... INFILTRATE (07:54)
[2024-06-07] MEDS: ceFAZolin SODIUM 1 GM VIAL IV PUSH (08:41)
[2024-06-07] MEDS: TRANEXAMIC ACID 1,000 MG/10 ML AMPUL 1000 MG IV PUSH (08:42)
--- NOTE | 2024-06-07 08:56 | P.OP_ITS ---
Procedure Note - Detailed Date of Procedure 06/07/24 Pre-op Diagnosis Osteoarthritis LEFT Knee Post-op Diagnosis Same Procedure Performed LEFT Total Knee arthroplasty Surgeon Zeus Yeager MD Probate Lawyer Stewart Anderson Anesthesia General Indications Pain and Arthritis Description of Procedure The patient was brought to operating room #8. A general anesthetic was administered. Placed on the operating table and sterilely prepped and draped in usual manner. A longitudinal incision was made. Tourniquet inflated to 300 mmHg for a total of 42 minutes. Dissection was carried down to the fascia. Medial parapatellar incision was made and the patella subluxated laterally. Patella cut from 27 to 17 mm. The tibia was cut perpendicular to the long axis and femur cut in 5 degrees of valgus. The components were trialed and the knee was noted to be stable with excellent motion. The soft tissues balanced, hemostasis obtained. All [address], 67 tibia, 65 femur, 37 mm patella, and 10AS mm poly. Motion was 0-125 degrees with good stability in both flexion and extension. The wound was closed with #2 Vicryl, 2-0 Vicryl and samuel. Implants [employer] Estimated Blood Loss 200 Drains No Packing No Pathology None sent Complications No immediate complications Condition Stable Disposition PACU [facility] Billing Surgery - Charge Forward: Surgery Billing ([id number] TOTAL KNEE)
[2024-06-07] MEDS: fentaNYL CITRATE INJ (*CRX) 100 MCG/2 ML VIAL 25 MCG IV PUSH ×6 (09:32→10:00)
--- NOTE | 2024-06-07 10:25 | SUR.PHASEI ---
Patient meets PACU discharge criteria, unit bed unavailable at this time. Patient placed in extended recovery status.
[2024-06-07] MEDS: HYDROcodone/acetaminophen (*CRX) 5-325 MG TABLET 1 TAB PO (10:50)
--- NOTE | 2024-06-07 11:18 | WPDANESPNB ---
Anes - Peripheral Nerve Block Date/Time: 06/07/24 11:18 I have discussed with the patient/family/POA the placement of a peripheral nerve block for post-operative pain management, including associated risks, benefits, complications, and side effects. Alternative methods of post-operative analgesia were detailed. Questions were solicited and answers provided to the satisfaction of the patient/family/POA. Time-Out: A pre-procedural Time-Out was completed immediately before starting the procedure and confirmed: Patient Identification, Site, Procedure, Patient Position and the Availability of Requisite Equipment. Clinical Indications: Acute post-operative pain management requested by the operative surgeon. Nerve Block Insertion Note Anes-nerve block: adductor canal left Patient position: supine Skin prep: chlorhexidine Needle: 22 gauge, stimulating, insulated echogenic needle. Needle length: 80 mm Technique: ultrasound Injectate: bupivacaine 0.5% with epi 5 mcg/ml (30cc - no epi) Observations: tolerated well Complications: none Procedure start time:: 938 Procedure end time:: 941
--- NOTE | 2024-06-07 15:35 | ADMGEN ---
This patient, Alf Alston, was admitted to Medical Room 243-01. Patient/family oriented to hospital policies and general routines including ID bracelet, bed and alarms, visiting hours, pain management, procedures, bathroom and other care routines, personal items, smoking policy, room service/diet, and visiting hours. Information on how to activate the Rapid Response Team has been discussed. Patient/Family are encouraged to report perceived risks to care and to ask questions if they do not understand what they are told or what they should do.
--- NOTE | 2024-06-07 16:40 | PM.IMCN ---
Assessment and Plan Assessment and plan (1) Osteoarthritis of left knee: Code(s): M17.12 - Unilateral primary osteoarthritis, left knee Status: Acute Assessment and Plan: Postoperative day 0 status post left total knee arthroplasty. Wound care, pain control, and DVT prophylaxis deferred to primary service. Check baseline labs in a.m. (2) Hypertension: Code(s): I10 - Essential (primary) hypertension Status: Acute Assessment and Plan: Blood pressures were reviewed and they have been a bit elevated postoperatively. Continue lisinopril 40 mg daily and monitor closely. (3) Dyslipidemia: Code(s): E78.5 - Hyperlipidemia, unspecified Status: Acute Assessment and Plan: Resume ezetimibe. Plan Thank you for allowing us to participate in this patient's care. Please do not hesitate to contact us with any questions. HPI Date of Consult Consult date: 06/07/24 Requesting Physician: Zeus Yeager MD Primary Care Provider: Bonifacio Murray MD Consult Narrative Reason for consult: medical management Narrative: This is a 64-year-old male with osteoarthritis, hypertension, dyslipidemia, and gastroesophageal reflux disease whom the hospitalist service has been consulted for help managing his medical conditions postoperatively. He presented today for elective left total knee replacement due to ongoing pain in that knee despite conservative outpatient treatment. His surgery was performed under general anesthesia with no immediate complications documented and an estimated blood loss of 200 mL. Postoperatively he has done well and has been up with physical therapy without issue. His pain is pretty well controlled. He denies fever, chills, sweats, chest pain, shortness a breath, nausea, and vomiting. The paresthesias, skin color, or temperature changes distal to the surgical site. Regarding his chronic medical conditions, he reports they are well controlled on home medications. No personal or family history of venous thromboembolism. Review of Systems Review of Systems: 12 systems were reviewed and are negative except for as per HPI. [facility] Past Medical History Medical History (Updated 06/07/24 @ 18:09 by Bijal Liz PA-C) Premature ventricular contraction Hypertension Osteoarthritis of knees, bilateral Pancreatitis Fatty liver Hyperlipidemia Surgical History Surgical History (Updated 06/07/24 @ 18:09 by Bijal Liz PA-C) History of total left knee replacement (06/07/24) History of cholecystectomy (06/07/22) robotic assisted laparoscopic cholecystectomy History of rotator cuff surgery History of knee surgery Family History Family History Father Hypertension Cancer Mother Hypertension Sibling Hypertension Grandparent Family history of coronary artery disease Social History Social History (Updated 06/07/24 @ 19:32 by Bijal Liz PA-C) Social History: Surrogate medical decision maker: Kayleigh Alston, spouse. Code status: Full code. Smoking packs per day: 1 Smoking cigarettes per day: 20.0 Years smoked: 15 Smoking pack-years: 15.00 Smoking status: Former smoker Tobacco type: cigarettes Second hand tobacco smoke exposure: Yes Smoking end date: 04/21/94 Alcohol intake: current Drinks per week: 5 Alcohol use details: Social alcohol use in moderation. Substance use: current Substance use type: marijuana Other substance usage details: thc gummies Last use: 06/06/24 Do You Feel Safe in your Home?: Yes Lack of Transportation: No Lack of Food: Never True Current Housing: I Have Housing Concerned About Future Housing: No Difficulty Paying Gas/Electric Bills: No Difficulty Paying for Meds: No Currently Unemployed: No Education: Associate Degree Difficulty w/ Childcare or Family Care: No Living arrangements: with family Additional living arrangements comments: Lives with spouse in [place] Occupation/Education: retired Additional occupation/education comments: [employer] care concerns: No Agree to blood products: Yes Meds Home Medications and Allergies Home Medications ?Medication ?Instructions ?Recorded ?Confirmed ?Type lisinopril 40 mg tablet 40 mg PO DAILY #90 tabs 03/16/24 06/07/24 Rx omeprazole 20 mg capsule,delayed 20 mg PO DAILY #90 caps 03/16/24 06/07/24 Rx release ezetimibe 10 mg tablet (Zetia) 10 mg PO DAILY #90 tabs 03/21/24 06/07/24 Rx acetaminophen 500 mg tablet 500 mg PO Q6H PRN pain 05/24/24 05/24/24 History (Tylenol Extra Strength) naproxen sodium 220 mg tablet 220 mg PO BID PRN pain 05/24/24 06/07/24 History (Aleve) Allergies Allergy/AdvReac Type Severity Reaction Status Date / Time Penicillins Allergy Unknown Rash Verified 06/07/24 13:28 Vital Signs Vital Signs - 24 hr 06/07/24 06:50 06/07/24 09:25 06/07/24 09:40 Temperature 97.6 F 98.6 F Pulse Rate 64 80 68 Respiratory Rate 14 10 L 14 Blood Pressure 136/73 162/91 H 167/93 H Pulse Oximetry 100 100 100 Oxygen Delivery Room Air Simple Face Mask Simple Face Mask Oxygen Flow Rate 8 8 06/07/24 09:55 06/07/24 10:10 06/07/24 10:25 Temperature Pulse Rate 70 68 67 Respiratory Rate 12 16 16 Blood Pressure 144/84 H 148/94 H 152/99 H Pulse Oximetry 92 96 99 Oxygen Delivery Room Air Room Air Room Air Oxygen Flow Rate 06/07/24 10:55 06/07/24 11:30 06/07/24 11:55 Temperature 98.0 F Pulse Rate 66 41 L Respiratory Rate 16 18 Blood Pressure 154/85 H 155/90 H Pulse Oximetry 95 100 Oxygen Delivery Room Air Room Air Room Air Oxygen Flow Rate 06/07/24 12:55 06/07/24 13:31 06/07/24 14:55 Temperature Pulse Rate 43 L 82 Respiratory Rate 16 16 Blood Pressure 149/98 H 148/71 H Pulse Oximetry 98 97 Oxygen Delivery Room Air Room Air Room Air Oxygen Flow Rate 06/07/24 15:35 06/07/24 15:41 06/07/24 15:50 Temperature 98.2 F 98.2 F Pulse Rate 86 84 Respiratory Rate 16 18 17 Blood Pressure 155/81 H 153/78 H Pulse Oximetry 98 97 97 Oxygen Delivery Room Air Oxygen Flow Rate 06/07/24 16:20 Temperature 98.2 F Pulse Rate 76 Respiratory Rate 17 Blood Pressure 149/89 H Pulse Oximetry 96 Oxygen Delivery Oxygen Flow Rate Exam Narrative: General: Nontoxic-appearing male sitting up in bed in no acute distress. Weight: 82.5 kg. BMI: 27.3. HEENT: PERRL, EOMI. Sclera anicteric. Oral mucosa moist. Oropharynx clear. Neck: Supple. Respiratory: Lungs are clear to auscultation bilaterally. Cardiovascular: Regular rate and rhythm with S1-S2. Gastrointestinal: Abdomen is soft, nontender, and nondistended with positive bowel sounds. Skin: Warm and dry. No rash or lesions on limited exam. Extremities: No cyanosis, clubbing, or edema. Radial and pedal pulses intact. Musculoskeletal: Left knee dressing is clean, dry, and intact. He is neurovascularly intact distal to the surgical site. Neurological: Alert. Cranial nerves 2-12 grossly intact. No gross focal deficits to casual conversation. Psychiatric: Pleasant and cooperative with normal mood and affect. Judgment and insight intact. Results Labs 06/07/24 06:34 Labs: Short CBC 06/07/24 Range/Units 06:34 Plt Count 120 L (150-375) k/mm3 Hospitalist [facility] Advance Care Plan I have confirmed that the patient's Advanced Care Plan is present, code status is documented, or surrogate decision maker is listed in patient medical record.: Yes Medication Reconciliation I have utilized all available resources to obtain, update and review the patients current medications (includes all prescriptions, OTC, herbals, cannabis, and nutritional supplements).: Yes
[2024-06-07] MEDS: SENNA/DOCUSATE SODIUM TABLET 2 TAB PO (17:05)
[2024-06-07] MEDS: CELECOXIB 200 MG CAPSULE PO (17:06)
[2024-06-07] MEDS: RIVAROXABAN 10 MG TABLET PO (17:07)
[2024-06-07] MEDS: traMADol HCL (*CRX) 50 MG TABLET PO (22:25)
[2024-06-07] MEDS: EZETIMIBE 10 MG TABLET PO (22:26)
[2024-06-08 01:11] VITALS: BP 149/72; PULSE 93; RESP 20; TEMP 37.6; O2SAT 94
[2024-06-08] MEDS: ceFAZolin 2 GM/D5W 50 ML 2 GM/50 ML BAG IVPB ×2 (01:26→08:44)
[2024-06-08] MEDS: HYDROcodone/acetaminophen (*CRX) 5-325 MG TABLET 1 TAB PO ×2 (01:28→06:45)
[2024-06-08 05:11] VITALS: BP 122/77; PULSE 82; RESP 18; TEMP 36.8; O2SAT 99
[2024-06-08] MEDS: traMADol HCL (*CRX) 50 MG TABLET PO (05:30)
[2024-06-08 06:03] LABS: Basophils Percent Auto 0.1 % (0.2-1.2); Hemoglobin 10.7 g/dL (14.0-18.0); Immature Granulocyte Absolute 0.09 K/mm3 (0.00-0.031); Immature Granulocyte Percent A 0.8 % (0-0.5); Lymphocytes Percent Auto 19.1 % (18.3-44.2); Mean Corpuscular HGB Conc 31.5 g/dl (32-36); Mean Corpuscular Hemoglobin 27.1 pg (26-34); Mean Corpuscular Volume 86.1 fl (80-100); Mean Platelet Volume 10.4 fl (7.4-10.4); Monocytes Absolute Auto 1.5 K/mm3 (0.1-0.6); Monocytes Percent Auto 12.6 % (2.6-8.5); Neutrophils Absolute Auto 7.8 K/mm3 (1.3-6.7); Neutrophils Percent Auto 67.4 % (45.5-73.1); Platelet Count Result 131 k/mm3 (150-375); Red Blood Count 3.95 M/mm3 (4.6-6.20); Red Cell Distribution Width 17.3 % (11.5-14.5); White Blood Count 11.5 K/mm3 (4.5-10.0)
[2024-06-08 06:17] LABS: Anion Gap 15 mmol/L (4-12); Blood Urea Nitrogen 16 mg/dL (9-20); Calcium 9.2 mg/dL (8.4-10.2); Carbon Dioxide 18 mmol/L (22-30); Chloride 105 mmol/L (98-107); Estimated CRCL calculation 63 ml/min; Estimated Glomerular Filt Rate > 60; Glucose 122 mg/dL (65-110); Magnesium 1.3 mg/dL (1.6-2.3); Potassium 4.2 mmol/L (3.4-5.0); Sodium 138 mmol/L (137-145)
--- NOTE | 2024-06-08 07:20 | P.PNOP_ITS ---
Progress Note: A&P Assessment and Plan (1) History of knee replacement procedure of left knee: Code(s): Z96.652 - Presence of left artificial knee joint Status: Acute Assessment and Plan: Patient underwent total knee arthroplasty left. Overall he is doing fine. He is ambulating with a walker. The he could be dismissed this time. Dismissed medication [place] and Xarelto. Subjective Subjective Date/Time Seen: 06/08/24 07:20 Principal diagnosis: Status post total knee arthroplasty left Review of Systems Review of Systems: 12 systems were reviewed and are negativ e except for as per HPI. Musculoskeletal: Musculoskeletal: Reports myalgias, Reports arthralgias, Reports joint swelling and Reports neck pain Neurologic: Reports abnormal gait Exam Narrative: Patient wiggles his toes. His can ambulate with a walker. Neurologically he is intact. Objective Data Vital Signs Vital Signs: Vital Signs - 24 hr 06/07/24 09:25 06/07/24 09:40 06/07/24 09:55 Temperature 98.6 F Pulse Rate 80 68 70 Respiratory Rate 10 L 14 12 Blood Pressure 162/91 H 167/93 H 144/84 H Pulse Oximetry 100 100 92 Oxygen Delivery Simple Face Mask Simple Face Mask Room Air Oxygen Flow Rate 8 8 06/07/24 10:10 06/07/24 10:25 06/07/24 10:55 Temperature 98.0 F Pulse Rate 68 67 66 Respiratory Rate 16 16 16 Blood Pressure 148/94 H 152/99 H 154/85 H Pulse Oximetry 96 99 95 Oxygen Delivery Room Air Room Air Room Air Oxygen Flow Rate 06/07/24 11:30 06/07/24 11:55 06/07/24 12:55 Temperature Pulse Rate 41 L 43 L Respiratory Rate 18 16 Blood Pressure 155/90 H 149/98 H Pulse Oximetry 100 98 Oxygen Delivery Room Air Room Air Room Air Oxygen Flow Rate 06/07/24 13:31 06/07/24 14:55 06/07/24 15:35 Temperature 98.2 F Pulse Rate 82 86 Respiratory Rate 16 16 Blood Pressure 148/71 H 155/81 H Pulse Oximetry 97 98 Oxygen Delivery Room Air Room Air Oxygen Flow Rate 06/07/24 15:41 06/07/24 15:50 06/07/24 16:20 Temperature 98.2 F 98.2 F Pulse Rate 84 76 Respiratory Rate 18 17 17 Blood Pressure 153/78 H 149/89 H Pulse Oximetry 97 97 96 Oxygen Delivery Room Air Oxygen Flow Rate 06/07/24 17:20 06/07/24 20:51 06/08/24 01:11 Temperature 97.8 F 99.2 F 99.7 F H Pulse Rate 90 81 93 Respiratory Rate 18 12 20 Blood Pressure 160/61 H 165/80 H 149/72 H Pulse Oximetry 96 99 94 Oxygen Delivery Oxygen Flow Rate 06/08/24 05:11 Temperature 98.3 F Pulse Rate 82 Respiratory Rate 18 Blood Pressure 122/77 Pulse Oximetry 99 Oxygen Delivery Oxygen Flow Rate Intake/Output Intake/Output: Intake & Output 06/05/24 06/06/24 06/07/24 06/08/24 23:59 23:59 23:59 23:59 Intake Total 1040 400 Output Total 400 Balance 640 400 Meds/Results Medications: Active Medications Generic Name Dose Route Start Last Admin Trade Name Freq PRN Reason Stop Dose Admin Hydrocodone Bitart/Acetaminophen 1 tab 06/07/24 10:43 06/08/24 06:45 Hydrocodone/Acetaminophen (*Crx) 5-325 Mg Tablet PO 1 tab Q4H PRN Administration Pain Rated 4-6 Hydrocodone Bitart/Acetaminophen 1 tab 06/07/24 15:26 Hydrocodone/Acetaminophen (*Crx) 7.5-325 Mg Tablet PO Q4H PRN Pain Rated 7-10 Celecoxib 200 mg 06/07/24 17:00 06/07/24 17:06 Celecoxib 200 Mg Capsule PO 200 mg BIDWM SAÚL Administration Diphenhydramine HCl 25 mg 06/07/24 15:26 Diphenhydramine Hcl Inj 50 Mg/Ml Vial IV PUSH Q6H PRN Itching Ezetimibe 10 mg 06/07/24 21:00 06/07/24 22:26 Ezetimibe 10 Mg Tablet PO 10 mg DAILY@2100 SAÚL Administration Hydromorphone HCl 1 mg 06/07/24 15:26 Hydromorphone Hcl Inj (*Crx) 1 Mg/Ml Syr IV PUSH Q2H PRN Breakthrough Pain Rated 7-10 or NPO Hydromorphone HCl 0.5 mg 06/07/24 15:26 Hydromorphone Hcl Inj (*Crx) 1 Mg/Ml Syr IV PUSH Q2H PRN Breakthrough Pain Rated 4-6 or NPO Cefazolin Sodium 2 gm in 50 mls @ 100 mls/hr 06/07/24 17:00 06/08/24 01:56 Ancef 2 Gm/D5w 50 Ml IVPB 06/08/24 09:29 Infused Q8H [facility] Infusion Naloxone HCl 0.1 mg 06/07/24 15:26 Naloxone Hcl 0.4 Mg/Ml Vial IV PUSH Q2M PRN Opiate Reversal Ondansetron HCl 4 mg 06/07/24 15:26 Ondansetron Inj 4 Mg/2 Ml Vial IV PUSH Q4H PRN Nausea And Vomiting Polyethylene Glycol 17 gm 06/07/24 15:26 06/07/24 17:06 Polyethylene Glycol 3350 17 Gm Powd.Pack PO Not Given QAM [facility] Rivaroxaban 10 mg 06/07/24 17:00 06/07/24 17:07 Rivaroxaban 10 Mg Tablet PO 06/18/24 17:01 10 mg DAILY@17 [facility] Administration Senna/Docusate Sodium 2 tab 06/07/24 15:55 06/07/24 17:05 Senna/Docusate Sodium Tablet PO 2 tab BID [facility] Administration Tramadol HCl 50 mg 06/07/24 15:26 06/08/24 05:30 Tramadol Hcl (*Crx) 50 Mg Tablet PO 50 mg Q4H PRN Administration Pain Rated 1-3 Radiology Results: ITS Impressions Knee X-Ray 06/07/24 09:50 IMPRESSION: 1. Total left knee arthroplasty in near-anatomic alignment. Labs Labs: Laboratory Results - last 24 hr 06/07/24 06/08/24 06:34 05:30 WBC 11.5 H RBC 3.95 L Hgb 10.7 L Hct 34.0 L MCV 86.1 MCH 27.1 MCHC 31.5 L RDW 17.3 H Plt Count 131 L MPV 10.4 Immature Gran % (Auto) 0.8 H Neut % (Auto) 67.4 Lymph % (Auto) 19.1 [place] % (Auto) 12.6 H Eos % (Auto) 0.0 Baso % (Auto) 0.1 L Lymph # (Auto) 2.20 [place] # (Auto) 1.5 H Eos # (Auto) 0.0 Baso # (Auto) 0.0 Abs Immat Gran (auto) 0.09 H Absolute Neuts (auto) 7.8 H Absolute Nucleated RBC 0.000 Nucleated RBC % 0.0 Sodium 138 Potassium 4.2 Chloride 105 Carbon Dioxide 18 L Anion Gap 15 H BUN 16 Creatinine 1.01 Estim Creat Clear Calc 63 Estimated GFR > 60 Glucose 122 H Calcium 9.2 Magnesium 1.3 L Blood Type O Negative Antibody Screen Negative
--- NOTE | 2024-06-08 07:23 | PM.DS ---
DS: Admitting Diagnosis Discharge Date 06/09/2024 Admitting Diagnosis Osteoarthritis left knee DS: Discharge Diagnosis Discharge Diagnosis (1) History of knee replacement procedure of left knee: Code(s): Z96.652 - Presence of left artificial knee joint Status: Acute Assessment and Plan: Patient underwent total knee arthroplasty for osteoarthritis of the left knee. He has done well pasta 5 operatively and could be dismissed. Dismissed medication [place] Xarelto and doxycycline. Follow-up 10-14 days for sutures out. DS: Summary Hospital Course Hospital Course: Patient underwent total knee arthroplasty for osteoarthritis on the left knee. He has done well postoperatively could be dismissed today. Dismissed medication [place] Xarelto and doxycycline. He may be full weight-bearing. He walks with a walker. Status at Discharge Functional status at discharge: uses cane/walker Time Spent with Patient Time attestation: Total time spent providing and/or coordinating discharge services: Exam Narrative: Patient can wiggle his toes. Neurologically he is intact he is able to ambulate with a walker. His dressing is dry and intact. DS: Data Data Completed and Pending Labs on day of discharge: Labs from last 24 hours 06/08/24 06/07/24 05:30 06:34 WBC 11.5 H RBC 3.95 L Hgb 10.7 L Hct 34.0 L MCV 86.1 MCH 27.1 MCHC 31.5 L RDW 17.3 H Plt Count 131 L MPV 10.4 Immature Gran % (Auto) 0.8 H Neut % (Auto) 67.4 Lymph % (Auto) 19.1 [place] % (Auto) 12.6 H Eos % (Auto) 0.0 Baso % (Auto) 0.1 L Lymph # (Auto) 2.20 [place] # (Auto) 1.5 H Eos # (Auto) 0.0 Baso # (Auto) 0.0 Abs Immat Gran (auto) 0.09 H Absolute Neuts (auto) 7.8 H Absolute Nucleated RBC 0.000 Nucleated RBC % 0.0 Sodium 138 Potassium 4.2 Chloride 105 Carbon Dioxide 18 L Anion Gap 15 H BUN 16 Creatinine 1.01 Estim Creat Clear Calc 63 Estimated GFR > 60 Glucose 122 H Calcium 9.2 Magnesium 1.3 L Blood Type O Negative Antibody Screen Negative Discharge Plan Discharge Patient Disposition: Home, Self-Care Discharge Instructions: Dr. Zeus Yeager M.D [address] [place] [address] POST-OPERATIVE DISCHARGE INSTRUCTIONS TOTAL KNEE ARTHROPLASTY 1. When resting, do not rest in the chair.When resting, lie on your back, with back flat on the couch or bed, with leg elevated above heart to minimize swelling. You may put a pillow under your head. . Significant swelling could indicate a blood clot and if this occurs call the office (or go to the ER) to have a venous ultrasound. Therefore, do not rest in a chair. 2. At least five times a day spend several minutes stretching your knee into flexion while sitting in the chair and also stretching your knee out straight The abilities to bend your knee fulling and straighten your knee fully are two most important knee functions to focus on during your recovery. 3. It is ok to sit in chair to eat, use the toilet and receive a guest and to do your stretching exercises, but, sitting in a chair will cause your leg to swell. Therefore, avoid additional time sitting in the chair. and don't rest in the chair. 4. Wound Care: Nursing will give you an additional Mepilex dressing at the time of discharge. Patient to remove the dressing and apply a new Mepilex dressing at home 7 days after surgery and leave the dressing on until seen in office. 5. May shower with a Mepilex dressing in place.The water will run off the dressing. 6. Unless you are told otherwise, you may put full weight on your operated leg. Use a walker for balance and practice walking as normally as you can, ideally for a few minutes every hour while you are awake. 7. I would advise against putting ice packs on your knee incision. Ice constricts blood flow which can impar healing of the knee incision. IMPORTANT: Remember not to sit in the chair for more than 30 minutes at a time. As a rule, during the first 14 days after surgery, only sit in the chair to work on the chair knee bending stretch exercise, for meals or for use of the restroom. Sitting in the chair promotes significant swelling in the knee and leg which will make your knee stiff and more painful and which simulates having a blood clot in the veins of the leg. If this type of significant diffuse swelling occurs, an ultrasound at the hospital will be necessary to rule out a blood clot. Be up walking around with the walker for a few minutes every hour while awake and then rest laying on your back on the couch or in bed with your leg elevated on cushions or pillows. Do not rest in the chair. Patient Language: Korean Stand Alone Forms: General Discharge Instructions Follow-up/Referrals: Zeus Yeager MD [Physician] - Discharge Medications: New doxycycline hyclate 100 mg tablet 100 mg PO DAILY Qty: 10 0RF hydrocodone-acetaminophen 7.5-325 mg tablet 1 tablet PO Q4H PRN (Reason: pain) Qty: 40 0RF Xarelto 10 mg tablet 10 mg PO DAILY Qty: 10 0RF Rx Instructions: for 10 days Continued lisinopril 40 mg tablet 40 mg PO DAILY Qty: 90 3RF Rx Instructions: takes HS omeprazole 20 mg capsule,delayed release(DR/EC) 20 mg PO DAILY Qty: 90 3RF Rx Instructions: takes at HS acetaminophen [Tylenol Extra Strength] 500 mg tablet 500 mg PO Q6H PRN (Reason: pain) naproxen sodium [Aleve] 220 mg tablet 220 mg PO BID PRN (Reason: pain) ezetimibe [Zetia] 10 mg tablet 10 mg PO DAILY Qty: 90 3RF Rx Instructions: takes HS
[2024-06-08] MEDS: CELECOXIB 200 MG CAPSULE PO (08:47)
[2024-06-08 08:48] VITALS: RESP 18; O2SAT 99
[2024-06-08] MEDS: SENNA/DOCUSATE SODIUM TABLET 2 TAB PO (08:48)
--- NOTE | 2024-06-08 09:41 | WPDANESPN ---
Anes - Prog Note Post-Op Date/Time: 06/08/24 09:41 Cardiovascular status: normal Respiratory status: normal Airway patency: baseline Mental status: baseline Post-Op hydration status: normal Vital Signs: Last Vital Signs Temp 36.8 C 06/08/24 05:11 Pulse 82 06/08/24 05:11 Resp 18 06/08/24 05:11 BP 122/77 06/08/24 05:11 Pulse Ox 99 06/08/24 05:11 O2 Del Method Room Air 06/07/24 15:41 O2 Flow Rate 8 06/07/24 09:40 Pain Score (VAS): 04/30 I/O: Intake & Output 06/07/24 06/08/24 06/08/24 23:59 07:59 15:59 Intake Total 290 400 Output Total 400 Balance -110 400 Laboratory Tests 06/08/24 05:30 06/08/24 05:30 06/08/24 05:30 WBC 11.5 H RBC 3.95 L Hgb 10.7 L Hct 34.0 L MCV 86.1 MCH 27.1 MCHC 31.5 L RDW 17.3 H Plt Count 131 L MPV 10.4 Immature Gran % (Auto) 0.8 H Neut % (Auto) 67.4 Lymph % (Auto) 19.1 [place] % (Auto) 12.6 H Eos % (Auto) 0.0 Baso % (Auto) 0.1 L Lymph # (Auto) 2.20 [place] # (Auto) 1.5 H Eos # (Auto) 0.0 Baso # (Auto) 0.0 Abs Immat Gran (auto) 0.09 H Absolute Neuts (auto) 7.8 H Absolute Nucleated RBC 0.000 Nucleated RBC % 0.0 Sodium 138 Potassium 4.2 Chloride 105 Carbon Dioxide 18 L Anion Gap 15 H BUN 16 Creatinine 1.01 Estim Creat Clear Calc 63 Estimated GFR > 60 Glucose 122 H Calcium 9.2 Magnesium 1.3 L Post-procedural complaints: none Patient Feedback: Patient satisfied with anesthetic care.
== END 2024-06-08 10:45 | disposition home or self-care (01) ==
LOC: ANHSURGERY 05:58 → ANH2MED 15:52
PROVIDERS: Anesthesiology; Orthopaedic Surgery; PCP Family Medicine; Visit Provider Nurse Practitioner Family
PROC: (CPT 27447; principal; 2024-06-07 07:30)
DX: M17.12 Unilateral primary osteoarthritis, left knee (principal); I10 Essential (primary) hypertension; E78.5 Hyperlipidemia, unspecified; K21.9 Gastro-esophageal reflux disease without esophagitis; I49.3 Ventricular premature depolarization; I49.9 Cardiac arrhythmia, unspecified; F12.90 Cannabis use, unspecified, uncomplicated; Z79.1 Long term (current) use of non-steroidal anti-inflammatories (NSAID); Z98.890 Other specified postprocedural states; Z90.49 Acquired absence of other specified parts of digestive tract; Z87.891 Personal history of nicotine dependence; Z80.9 Family history of malignant neoplasm, unspecified; Z82.49 Family history of ischemic heart disease and other diseases of the circulatory system
CPT/HCPCS: 27447; 36415; 73560; 80048; 83735; 85025; 85049; 86850; 86900; 86901; 97110; 97116; 97161; 97165; 97530; A9270; C1713; C1776; J0171; J0690; J1100; J1885; J2003; J2250; J2270; J2405; J2704; J2795; J3010; J3370; J7120

== ENCOUNTER 2024-08-18 08:00 | Outpatient (RCR) | payer MEDICARE, SELFPAY ==
--- NOTE | 2024-06-14 10:24 | OPREHPOC ---
Outpatient Therapy Plan of Care This is a Multidisciplinary Plan of Care that may contain components documented by all disciplines (PT, OT, and ST.) PT Problem 1 PT Problem #1 Knowledge Deficit PT Goal 1 Goal / Goal Update Pt to be IND with issued HEP Target Visit 20 PT Problem 2 PT Problem #2 Pain PT Goal 1 Goal / Goal Update 1. Pt to report knee pain no greater than 3/10 in the last week. Target Visit 20 PT Problem 3 PT Problem #3 Impaired Range of Motion PT Goal 1 Goal / Goal Update 1. Pt to improve knee flexion ROM to 115 deg 2. Pt to improve knee extension ROM to no greater than -3 deg. Target Visit 20 PT Problem 4 PT Problem #4 Impaired Functional Mobility PT Goal 1 Goal / Goal Update 1. Pt to demonstrate functional lift and carry from ground level with 20lb. 2. Pt to demonstrate floor to stand transfers IND. 3. Pt to demonstrate stairs with a reciprocal pattern. Target Visit 20
--- NOTE | 2024-06-14 10:24 | PTOPEVAL1 ---
Assessment and note entered by Brooke Sweeney, PT, DPT Evaluation Information Assessment Status Evaluation Diagnosis L TKA Z96.652 ICD-10 Condition Codes (PT) Pain in left knee M25.562,Abnormalities of gait and mobility R26.9,Weakness R53.1,Aftercare following joint replacement surgery Z47.1 Onset 06/07/24 Subjective Information Pt had a L TKA on 06/07/24. He states sleeping so far has been challenging. Has a split level house so has been using crutches to get around. Pt is very active at baseline, enjoys golfing, bowling, hiking, and working on his mobile home. Reported Pain Level Pain Score 7: Self Report Assessment PT Clinical Summary Pt presents to therapy today following a L TKA on 06/07/24. Today he demonstrates s/s consistent with his diagnosis. He demonstrates decreased active strength, decreased active and passive ROM, gait deviations, and decreased functional mobility. His ROM is the largest deficit currently. Pt was issued an HEP to prioritize movement. Skilled therapy services are indicated to address the deficits noted above, to manage pain, and to return to PLOF. Plan of Care Interventions Electrical Stimulation,Gait Training,Manual Therapy,Neuro Re-education,Patient/Caregiver Education,Therapeutic Activities,Therapeutic Exercise PT Services Indicated Yes Treatment Frequency and 2-3x/wk for 10 visits Duration These treatments will address the objective and functional deficits as defined above. The patient will be advanced safely and appropriately in order for the patient to progress towards his/her prior level of function. Additional exercises will be introduced and as well as a comprehensive home exercise program upon discharge, if needed, ?to ensure carryover of functional gains achieved in the clinic. This treatment plan has been reviewed and agreement upon by the patient.
--- NOTE | 2024-07-05 11:31 | OPREHPOC ---
Outpatient Therapy Plan of Care This is a Multidisciplinary Plan of Care that may contain components documented by all disciplines (PT, OT, and ST.) PT Problem 1 PT Problem #1 Knowledge Deficit PT Goal 1 Goal / Goal Update Pt to be IND with issued HEP 07/05/24: met Target Visit 20 Progress Met PT Problem 2 PT Problem #2 Pain PT Goal 1 Goal / Goal Update 1. Pt to report knee pain no greater than 3/10 in the last week. 07/05/24: 1. progressing, 6/10 Target Visit 20 PT Problem 3 PT Problem #3 Impaired Range of Motion PT Goal 1 Goal / Goal Update 1. Pt to improve knee flexion ROM to 115 deg 2. Pt to improve knee extension ROM to no greater than -3 deg. 07/05/24: 1. met 2. progressing, -12 deg Target Visit 20 PT Problem 4 PT Problem #4 Impaired Functional Mobility PT Goal 1 Goal / Goal Update 1. Pt to demonstrate functional lift and carry from ground level with 20lb. 2. Pt to demonstrate floor to stand transfers IND. 3. Pt to demonstrate stairs with a reciprocal pattern. 07/05/24: 1. not met 2. not met 3. met Target Visit 20 Progress Partially Met
--- NOTE | 2024-07-05 11:31 | PTOPPROG ---
Assessment and note entered by Brooke Sweeney, PT, DPT Evaluation Information Assessment Status Progress Diagnosis L TKA Z96.652 ICD-10 Condition Codes (PT) Pain in left knee M25.562,Abnormalities of gait and mobility R26.9,Weakness R53.1,Aftercare following joint replacement surgery Z47.1 Onset 06/07/24 Subjective Information Pt states it feels like he has taken a small step backwards, he states he has been feeling really good and has been doing more. feels like this has contributed to his pain. He states sitting is very difficult for more than a couple of minutes. Assessment PT Clinical Summary Pt presents to therapy today following 9 visits of skilled therapy following a L TKA on 06/07/24. He demonstrates improved gait speed, but still has an antalgic pattern with a lack of terminal knee extension. His knee flexion ROM has improved but his extension ROM is still fairly limited. He is making fair progress towards his goals. Continuation of skilled therapy services are indicated to address the deficits noted above, to manage pain, and to return to PLOF. Plan of Care Interventions Electrical Stimulation,Gait Training,Manual Therapy,Neuro Re-education,Patient/Caregiver Education,Therapeutic Activities,Therapeutic Exercise PT Services Indicated Yes Treatment Frequency and 2-3x/wk for 10 visits Duration These treatments will address the objective and functional deficits as defined above. The patient will be advanced safely and appropriately in order for the patient to progress towards his/her prior level of function. Additional exercises will be introduced and as well as a comprehensive home exercise program upon discharge, if needed, ?to ensure carryover of functional gains achieved in the clinic. This treatment plan has been reviewed and agreement upon by the patient.
--- NOTE | 2024-08-18 08:50 | OPREHPOC ---
Outpatient Therapy Plan of Care This is a Multidisciplinary Plan of Care that may contain components documented by all disciplines (PT, OT, and ST.) PT Problem 1 PT Problem #1 Knowledge Deficit PT Goal 1 Goal / Goal Update Pt to be IND with issued HEP 07/05/24: met Target Visit 20 Progress Met PT Problem 2 PT Problem #2 Pain PT Goal 1 Goal / Goal Update 1. Pt to report knee pain no greater than 3/10 in the last week. 07/05/24: 1. progressing, 09/2808/18/24: 1. slow progress, 09/28 Target Visit 20 Progress Not Met PT Problem 3 PT Problem #3 Impaired Range of Motion PT Goal 1 Goal / Goal Update 1. Pt to improve knee flexion ROM to 115 deg 2. Pt to improve knee extension ROM to no greater than -3 deg. 07/05/24: 1. met 2. progressing, -12 deg 08/18/24: 1. met, 120 2. met, -3 deg Target Visit 20 Progress Met PT Problem 4 PT Problem #4 Impaired Functional Mobility PT Goal 1 Goal / Goal Update 1. Pt to demonstrate functional lift and carry from ground level with 20lb. 2. Pt to demonstrate floor to stand transfers IND. 3. Pt to demonstrate stairs with a reciprocal pattern. 07/05/24: 1. not met 2. not met 3. met 08/18/24: 1-3. met Target Visit 20 Progress Met
--- NOTE | 2024-08-18 08:50 | PTOPDC ---
Assessment and note entered by Brooke Sweeney, PT, DPT Evaluation Information Assessment Status Discharge Diagnosis L TKA Z96.652 ICD-10 Condition Codes (PT) Pain in left knee M25.562,Abnormalities of gait and mobility R26.9,Weakness R53.1,Aftercare following joint replacement surgery Z47.1 Onset 06/07/24 Subjective Information Pt states overall his knee is doing really well. He went camping last weekend and was able to squat , bend, and lift without any increase in pain. He states he still gets mild clicking. Pt has no consistent pains or any pain at rest, but still get quick pains that come and go really quickly. Reported Pain Level Pain Score 0: Self Report Assessment PT Clinical Summary Pt presents to therapy today following 18 visits of skilled therapy following a L TKA on 06/07/24. He demonstrates improved gait speed and pattern, improved active and passive knee motion, has L knee ROM from 0 - 3 - 120. He has met all of his functional goals at this time and no longer requires skilled services. He will be discharged at this time. Plan of Care PT Services Indicated No
== END 2024-08-19 09:55 | disposition home or self-care (01) ==
LOC: ANHGOSHPT 08:00
PROVIDERS: PCP Family Medicine; Visit Provider Orthopaedic Surgery
DX: Z96.652 Presence of left artificial knee joint (principal)
CPT/HCPCS: 97110; 97140; 97161; 97530